=== PATIENT | male | born 1950 | race Caucasian/White ===

== ENCOUNTER 2024-01-26 13:11 | Outpatient (CLI) | payer MEDICARE, SELFPAY ==
--- NOTE | 2024-01-26 | ECG_ITS ---
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 Interpretive Statements NAME OF STUDY: TREADMILL STRESS ECHOCARDIOGRAM INDICATION: Chest Pain, pt did not hit target heart rate PROCEDURE: At the baseline, the patient's blood pressure was 150/103 with a heart rate of 62. The baseline electrocardiogram showed normal sinus rhythm with normal ST-Ts.. The patient exercised for 6 minutes and 34 on a standard [place] protocol. Patient attained a maximum heart rate of 130 beats per minute(76% of the maximum predicted heart rate) with a blood pressure at the peak exercise of 173/97 mm Hg. The EKG at the peak exercise revealed nonspecific ST-T changes patient did not have any chest pain or any significant cardiac arrhythmias with the exercise During the recovery phase, there were no new changes. Blood pressure at the end of the recovery phase was 186/80 mm Hg with a heart rate of 70 per minute. There were frequent PVCs on the monitor. The EKG showed 1-[address] depressions in leads II, III, aVF, V5 and V6 CONCLUSION: 1. Abnormal EKG response to treadmill exercise, suggesting inferolateral wall ischemia 2. There was exercise-induced ventricular arrhythmia 3. Fair exercise tolerance, attained a maximum of 10.2 METs Electronically Signed On 01-31-2024 0:01:33 CDT by Kandy Beltran M.D. [email or web address]
[2024-01-26 13:28] VITALS: BMI 29.7
--- NOTE | 2024-01-26 13:30 | USCV_ITS ---
Nii Hendrix Age: 73 Gender: M : 1950 Exam Date: 01/26/2024 13:28 Ordering Phys: Zahraa Culp MD Technologist: Exam Location: [facility] [place] Indication: chest pain Rhythm: Sinus Patient History: Cardiac Medications: Medications in past 24 hours: Contrast: Stress Results Protocol: [place] Total dose(mL): Exercise Duration (min:sec): METS: Resting HR: 64 Resting BP: 150 / 103 Peak HR: Peak BP: / Max Predicted HR: 148 % Max Predicted HR Target HR: 126 Double Product: Stress Summary: BP Response: Reason for Termination: Cardiac Symptoms: ECG Analysis Resting ECG: Stress ECG: Arrhythmia: MEASUREMENTS (Male/Female) Normal Values FINDINGS Baseline echocardiogram revealed normal LV size with possibly normal ejection fraction. Mild hypokinesia of the apical septum, mid and apical inferolateral wall segments. With the peak exercise, there was a good augmentation of all the segments except for the abovementioned segment which became more hypokinetic. Aortic root: Normal size. No pericardial effusion. CONCLUSIONS 1. Exercise-induced worsening of the baseline wall motion abnormalities, suggesting ischemia in the distribution of the left anterior descending artery and left circumflex artery No pericardial effusion No similar previous studies are available for comparison Dr Kandy Betlran MD [facility] (Electronically Signed) Final Date: 27 January 2024 00:17 S
[2024-01-26 13:58] VITALS: BP 186/80; PULSE 71
== END 2024-01-26 13:12 | disposition home or self-care (01) ==
LOC: CDL 13:11
PROVIDERS: Visit Provider Family Medicine
DX: R07.9 Chest pain, unspecified (principal); I20.89 Other forms of angina pectoris; R94.31 Abnormal electrocardiogram [ECG] [EKG]
CPT/HCPCS: 93350

== ENCOUNTER → 2024-01-31 12:55 | Outpatient (BNVA) | payer MEDICARE, SELFPAY | PROVIDERS: Referring Provider Family Medicine; Visit Provider Internal Medicine | DX: I20.89 Other forms of angina pectoris (principal); R94.39 Abnormal result of other cardiovascular function study; I10 Essential (primary) hypertension; Z87.891 Personal history of nicotine dependence | CPT/HCPCS: 99205 ==

== ENCOUNTER → 2024-02-02 08:35 | Outpatient (BNVA) | payer MEDICARE, SELFPAY | PROVIDERS: Visit Provider Internal Medicine | DX: R58 Hemorrhage, not elsewhere classified (principal); E78.5 Hyperlipidemia, unspecified; R94.39 Abnormal result of other cardiovascular function study; I20.89 Other forms of angina pectoris | CPT/HCPCS: 80048; 80061; 85025; 85610 ==

== ENCOUNTER 2024-02-10 06:11 | Outpatient (CLI) | payer MEDICARE, SELFPAY ==
[2024-02-10] VITALS (17 sets, daily range): BP systolic 114–160; BP diastolic 59–81; PULSE 53–65; RESP 11–20; TEMP 36.6–36.9; O2SAT 95–99
[2024-02-10] MEDS: aspirin 325 mg Tablet PO (06:30)
[2024-02-10] MEDS: diphenhydrAMINE 50 mg Capsule PO (06:30)
--- NOTE | 2024-02-10 07:00 | XACV_ITS ---
Ht: 170 cm Wt: 87 kg BSA: 2.05 m2 Gender: Male : 1950 Any Known Allergies: No known allergies Exam Priority: Routine Procedure(s): Procedure Description: Diagnostic procedure Procedure Description: Left Heart Catheterization Procedure Description: Left ventriculography Procedure Description: Coronary Angiography Diagnostic Cath Status: Elective Diagnostic Findings * INDICATION: Worsening angina/abnormal stress test. * Left Main has no significant disease. * Proximal Left Anterior Descending to Distal Left Anterior Descending: severe serial 80-90% stenosis, EMERITA: 3 flow. LAD gives rise to large sized second diagonal artery that has proximal 80% stenosis. * Mid Right Coronary Artery: critical 95% stenosis, EMERITA: 3 flow. PDA and PLV branches have left to right collaterals. * Proximal Circumflex: critical 95% stenosis, MEERITA: 3 flow. * Mid Circumflex: severe 90% stenosis, EMERITA: 2 flow. * Coronary angiography shows right dominance. Conclusions 1. Critical multivessel CAD. 2. Mild left ventricular systolic dysfunction. Ejection fraction of 45%. Recommendations * We will refer patient to tertiary care center for CABG evaluation. * We will continue aspirin, will start high intensity statin therapy, uptitrate anti-anginal therapy. * Outpatient cardiology follow up in 2 weeks. Interventional RX Recommendation: CABG Diagnostic RX Recommendation: CABG Anticoagulation: Heparin Ventriculography Ejection Fraction: 45.0 % Pressures Phase:Rest AO : 137 / 69 ( 94 ) @ 9:07:00 AM 165 / 71 ( 107 ) @ 9:15:00 AM 159 / 75 ( 108 ) @ 9:15:00 AM LV : 159 @ 9:14:00 AM 159 @ 9:15:00 AM 170 / - @ 9:15:00 AM Valves Phase:DefaultPhase AV : 0.0 @ 8:22:01 AM 0.0 @ 8:22:01 AM AV Mean Gradient: 0.0 @ 8:22:01 AM 0.0 @ 8:22:01 AM Clinical Evaluation EBL: 5mL-10mL Procedural Details Procedure Consent Obtained. Pre-Procedure Time Out. Identified patient by full name and date of as verbalized by the patient/guarantor. Does the consent match the physician's order: Yes. Accurate & Complete Informed Consent: Yes. Inpatient/Outpatient History & Physical on Chart: Yes. If H&P is completed, is and addenduem needed: No; If yes, is the addendum complete: N/A. Visualize and Verify Site with Patient/Guarantor: N/A. Relevant Radiology Images available: N/A. Pre-op teaching completed and patient verbalized understanding. The risks, benefits, and alternatives of sedation and/or procedure were discussed by physician. The patient agrees to continue. Procedure started. [facility] Clinical Fraility Score: 3: Managing Well. Hide Dropper Indications: Worsening Angina, abnormal stress test. Chest Pain Symptom Assessment: Typical Angina Symptoms. Cardiovascular Instability: No. Correct patient, site and procedure confirmed by cath team. PERRLA. 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 Lungs clear x 5 lobes. IV Site on Arrival: 20 gauge in the left anticubital. IV Fluids: 0.9% NaCl at KVO. 0 mL infused prior to logging rafter laborer. Pre Procedural Pulses: bilateral dorsalis pedis was 2+. Pre Procedural Pulses: bilateral posterior tibial was 2+. Pre Procedural Pulses: bilateral radial was 3+. Oxygen started at 2liters/min via nasal canula. right groin was prepped with chloroprep then draped in the usual sterile fashion. right radial was prepped with chloroprep then draped in the usual sterile fashion. Physician arrived. Baseline sample Acquired. HR: 64 BPM. Equipment: 6F - Radial. Cardiac Cath Pack. ACIST Manifold Kit Model BT 2000. Heparinized Saline (2 units/mL), 1000 mL bag. Physician scrubbed in. Immediate Pre-Procedure Time Out. Correct Patient: Yes; Correct Procedure: Yes; Correct Site: Yes; Correct Patient Position: Yes; Correct Supplies: Yes; Dried Flammable Prep: Yes; Blood Products Available: N/A;. Lidocaine 1% infiltrated to the right radial. Arterial access obtained. A 5 panamanian TIG catheter in over wire. Multiple views taken of left coronary artery. Catheter redirected to the RCA. Multiple views taken of right coronary artery. Catheter removed over the exchange wire. A 5 panamanian Angled Pig catheter in over wire. EDP Sample taken: LV 159/7,19; HR: 58 BPM; SpO2: 99%. LV gram performed in [place] @ 10 mL/second for a total of 30 mL. EDP Sample taken: LV 159/4,19; HR: 69 BPM; SpO2: 98%. Pullback taken: LV 170/-2,22; AO 165/71(107); Mean: 0mmHg, Peak to Peak: 0mmHg, SEP: 15sec/min; HR: 65 BPM; SpO2: 99%. Catheter removed over the exchange wire. Physician scrubbed out. A TR Band was successful obtaining hemostatsis at the Right Radial artery insertion site. TR band placed. Hemostasis obtained. Post Procedure: Pulses reassessed and unchanged. PERRLA. 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 No VTE prophylaxis required. Medication's Wasted: Lidocaine 1% = 17 mL. Medication's Wasted: Nitro = 49.8 mg. Medication's Wasted: Other = versed 1 mg. Medication's Wasted: Other = fentanyl 50 mcg. Total IV fluids: 32 mL. Post-op diagnosis: multi vessel CAD,. Complications: none. Estimated blood loss: 5mL-10mL. Contrast type used: Omnipaque 300 mgI/mL, 500 mL bottle. Responsiveness - Normal response to verbal stimuli; alert and oriented, PERRLA. Airway - Unaffected, no intervention required; spontaneous ventilation. Circulation: W/N/L, pulses unchanged. Nausea/Vomiting: No. Medication's Wasted: Heparin = 1000 units. Procedure completed. Patient transferred by wheelchair to 1st floor. Vital chart was stopped. Access Site Site: Right Radial artery Sheath Size: 6 Fr Hemostasis Method: TR Band Hemostasis Success: Successful Procedure Medications Start: 7:59 AM Stop: 7:59 AM Medication: Versed Amount: 1 mg Route: I.V. Start: 7:59 AM Stop: 7:59 AM Medication: Fentanyl Amount: 50 mcg Route: I.V. Start: 8:05 AM Stop: 8:05 AM Medication: Nitrogylcerin Amount: 200 mcg Route: I.A. Start: 8:07 AM Stop: 8:07 AM Medication: Heparin Amount: 5000 units Route: I.V. I, the attending physician, have reviewed and verified all procedure medications. Yes, all medications given per verbal order History/Risk Factors Hypertension: Yes Dyslipidemia: No Peripheral Arterial Disease (PAD): No Myocardial Infarction (WA): No Obesity: No Renal Disease: No Tobacco Use: Former Prior Interventions PCI: No CABG: No Valve Surgery: No Report Signatures Finalized by Alejandro Baldwin MD on 02/11/2024 10:36 PM
--- NOTE | 2024-02-10 07:59 | W.PM.OPSUD ---
Surgery/Procedure H&P Update DATE OF PROCEDURE: February 10, 2024 DATE H&P PERFORMED: 01/31/24 H&P UPDATE INFORMATION: I have reviewed H&P completed within last 30 days, I have examined patient prior to procedure and No changes to prior documentation PREOP DIAGNOSIS: Worsening angina/abnormal stress test PRIMARY INDICATION FOR PROCEDURE: Worsening angina/abnormal stress test PLANNED PROCEDURE: Operation Date: 02/10/24 07:00 Proposed Procedures p Cardiac Catheterization 18870, R94.39(Left) - Alejandro Baldwin M.D Possible percutaneous coronary intervention PATIENT REASSESSED PRIOR TO SEDATION, WITH NO CHANGE NOTED: Yes PHYSICAL EXAM: alert, oriented x 3, clear to auscultation bilaterally and regular rate & rhythm AIRWAY EVAL/ANESTHESIA PLAN: normal airway, ASA III, Local Anesthesia, Risks, benefits & alternatives of sedation and/or procedure discussed and Patient agrees to continue as planned ADDITIONAL INFORMATION: Moderate sedation
--- NOTE | 2024-02-10 08:44 | PC.NURSE ---
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 No s/s of bleeding or hematoma formation observed. Instructed patient on site care and restrictions. Patient verbalized complete understanding. Will continue to monitor.
--- NOTE | 2024-02-10 11:00 | PC.NURSE ---
Initiated air removal from TRBand at ~0930. Removed 2-3ml of air every 15-20min until all air removed at this time. TRBand removed. No s/s of bleeding or hematoma formation observed. Reinforced site care and restrictions. Patient verbalized complete understanding. Covered site with 2x2 and loose coban. Will continue to monitor.
--- NOTE | 2024-02-10 12:14 | PC.NURSE ---
Patient provided discharge information. Appointments made. Patient reports having his appointment for Dr Barrett for [place]. Medications with changes. Provided informtion regarding CABG, medications and post cath care. Patient verbalized complete understanding. IV removed. Right wrist remains free from bleeding and hematoma formation. Patient taken by wheelchair to private vehicle..
== END 2024-02-10 12:14 | disposition home or self-care (01) ==
LOC: CCL 06:19 → CSU 08:45
PROVIDERS: PCP Family Medicine; Visit Provider Internal Medicine
DX: I25.118 Atherosclerotic heart disease of native coronary artery with other forms of angina pectoris (principal); I10 Essential (primary) hypertension; Z87.891 Personal history of nicotine dependence
CPT/HCPCS: 36415; 93458; 96374; 96375; 99152; 99153; C1769; C1887; C1894; J1644; J2250; J3010; J3490; J7030; Q0163; Q9967

== ENCOUNTER → 2024-03-19 16:05 | Outpatient (BNVA) | payer MEDICARE, SELFPAY | PROVIDERS: PCP Family Medicine; Visit Provider Family Medicine | DX: M25.50 Pain in unspecified joint | CPT/HCPCS: 80053; 84550 ==

== ENCOUNTER → 2024-04-16 14:06 | Outpatient (BNVA) | payer MEDICARE, SELFPAY | PROVIDERS: PCP Family Medicine; Visit Provider Internal Medicine | DX: I10 Essential (primary) hypertension (principal); I25.10 Atherosclerotic heart disease of native coronary artery without angina pectoris; Z87.891 Personal history of nicotine dependence; Z95.1 Presence of aortocoronary bypass graft | CPT/HCPCS: 36415; 80053; 82550; 83880; 99214 ==

== ENCOUNTER → 2024-04-25 14:32 | Outpatient (BNVA) | payer MEDICARE, SELFPAY | PROVIDERS: Referring Provider Family Medicine; Visit Provider Surgery | DX: I25.10 Atherosclerotic heart disease of native coronary artery without angina pectoris (principal); K64.4 Residual hemorrhoidal skin tags; K64.8 Other hemorrhoids | CPT/HCPCS: 99203 ==

== ENCOUNTER → 2024-06-01 10:42 | Outpatient (BNVA) | payer MEDICARE, SELFPAY | PROVIDERS: Visit Provider Family Medicine | DX: R39.9 Unspecified symptoms and signs involving the genitourinary system; E78.5 Hyperlipidemia, unspecified; N40.0 Benign prostatic hyperplasia without lower urinary tract symptoms | CPT/HCPCS: 80053; 80061; 81000; 85025; 87086 ==

== ENCOUNTER → 2024-07-17 11:58 | Outpatient (BNVA) | payer OTHER, SELFPAY | PROVIDERS: PCP Family Medicine; Visit Provider Internal Medicine | DX: I10 Essential (primary) hypertension (principal); I25.10 Atherosclerotic heart disease of native coronary artery without angina pectoris | CPT/HCPCS: 99214 ==

== ENCOUNTER → 2025-01-15 10:41 | Outpatient (BNVA) | payer MEDICARE, SELFPAY | PROVIDERS: PCP Family Medicine; Visit Provider Nurse Practitioner Family | DX: I25.10 Atherosclerotic heart disease of native coronary artery without angina pectoris (principal); Z95.1 Presence of aortocoronary bypass graft; E78.5 Hyperlipidemia, unspecified; I10 Essential (primary) hypertension; M62.82 Rhabdomyolysis; Z87.891 Personal history of nicotine dependence | CPT/HCPCS: 99214 ==

== ENCOUNTER → 2025-02-21 12:09 | Outpatient (BNVA) | payer MEDICARE, SELFPAY | PROVIDERS: PCP Family Medicine; Visit Provider Registered Nurse Neonatal Intensive Care | DX: M17.11 Unilateral primary osteoarthritis, right knee (principal) | CPT/HCPCS: 73562 ==

== ENCOUNTER 2025-02-23 15:13 | Inpatient (IN) | payer MEDICARE, SELFPAY ==
[2025-02-23 15:13] VITALS: BP 135/59; PULSE 83; RESP 17; TEMP 37.4; O2SAT 94; BMI 32.1
--- NOTE | 2025-02-23 15:20 | XRR_ITS ---
PROCEDURE INFORMATION: Exam: XR Right Knee Exam date and time: 02/23/2025 3:22 PM Age: 74 years old Clinical indication: Pain; Knee; Right; Additional info: R knee pain TECHNIQUE: Imaging protocol: Radiologic exam of the right knee. Views: 3 views. COMPARISON: CR XR knee RT 3V* [id number] 02/21/2025 12:17 PM FINDINGS: Bones/joints: There is tricompartmental narrowing present consistent with severe osteoarthritis. Soft tissues: Unremarkable XR/XR knee RT 3V* [id number] IMPRESSION: No acute findings.
--- NOTE | 2025-02-23 15:22 | ED_ITS ---
HPI - Extremity Problem 2 General: Chief complaint: Extremity Problem,Nontraumatic Stated complaint: right knee pain Time Seen by Provider: 02/23/25 15:18 Source: patient Mode of arrival: ambulatory Limitations: no limitations History of Present Illness: 74-year-old male who states been having right knee pain since Tuesday. States it has been a sharp pain rates it an 8 out of 10 is much worse with movement and walking denies any injuries. No history of surgery on that knee Associated symptoms: Deny chest pain, fever(s) or rash Related Data Home Medications ?Medication ?Instructions ?Recorded ?Confirmed aspirin 81 mg tablet,delayed 81 mg PO DAILY 02/23/25 0 02/23/25 release clopidogrel 75 mg tablet 75 mg PO DAILY 02/23/2502/01 Previous Rx's ?Medication ?Instructions ?Recorded amlodipine 10 mg tablet 10 mg PO DAILY #90 tabs 12/25 tramadol 50 mg tablet 50 mg PO BID PRN pain #60 ta bs 01/03/25 tamsulosin 0.4 mg capsule 0.4 mg PO DAILY #90 caps 05/27 diclofenac sodium 1 % topical gel 4 g topical QID #100 grams 02/21/25 (Voltaren Arthritis Pain) Allergies Allergy/AdvReac Type Severity Reaction Status Date / Time bisoprolol Allergy Intermediate ADV-Weaknes Verified 02/21/25 11:51 s carvedilol Allergy Intermediate Urinary Verified 02/21/25 11:51 retention [id number]-PfT Reductase Allergy ADR-Abdominal Verified 02/21/25 11:51 Inhibitor Pain Review of Systems 2 Const: Denies: fever(s), chills, body aches or change in appetite ENMT: Denies: throat pain or dental pain Card: Denies: chest pain Resp: Denies: dyspnea GI: Denies: abdominal pain, nausea, vomiting or diarrhea Musc: Reports: extremity pain; Denies: neck pain or back pain Skin/Breast: Denies: rash Neuro: Denies: headache(s) PFSH ED 2 PFSH: Medical History Urinary frequency Chronic pain BPH (benign prostatic hyperplasia) Surgical History History of tonsillectomy History of laminectomy History of appendectomy History of heart bypass surgery Family History Grandfather CAD (coronary artery disease) Grandmother Stroke Father Abdominal abscess Mother Heart failure Social History Smoking and tobacco/nicotine status: never used tobacco/nicotine Alcohol intake: never Substance/Drug Use: never Physical Exam 2 Const: COMMON NORMALS: patient oriented x3 HENMT: COMMON NORMALS: normocephalic and atraumatic HEAD & SCALP: n ormocephalic and atraumatic Eye: COMMON NORMALS: conjunctivae normal CONJUNCTIVA: Yes conjunctivae normal Neck/C-Spine: COMMON NORMALS: full ROM and supple Chest: COMMONS NORMALS: normal inspection of the chest Resp: COMMON NORMALS: normal respiratory effort Cardio: COMMON NORMALS: regular rate RATE: regular rate Extremity: NARRATIVE EXTREMITY EXAM: Swelling noted to right knee along with tenderness to touch Neuro: COMMON NORMALS: patient oriented x3, moves all extremities and no focal motor deficits Psych: COMMON NORMALS: mental status grossly normal, Normal thought process present and cooperative THOUGHT PROCESS: Normal thought process present Skin: COMMON NORMALS: no rashes or lesions noted and no wounds GENERAL SKIN EXAM: no rashes or lesions noted Procedures Joint Aspiration/Injection Joint Asp./Inject. 1: Time Out Performed: Yes Side of body: right Joint Aspirated: knee Ultrasound Guidance: No Skin Prep: Povidone-Iodine1% Local Anesthetic: lidocaine 1% Amount of anesthesia used (mL): 8 Needle Size Used: 18G Fluid Obtained: purulent Total fluid obtained (mL): 40 Patient Tolerated Procedure: well Complications: none Course 2 Vital Signs: Vital signs: Vital Signs Temperature 99.3 F 02/23/25 15:13 Pulse Rate 94 02/23/25 16:50 Respiratory Rate 18 02/23/25 16:50 Blood Pressure 115/54 02/23/25 16:50 Pulse Oximetry 95 02/23/25 16:50 Oxygen Delivery Me thod Nasal Cannula 02/23/25 16:50 Oxygen Flow Rate 2 02/23/25 16:50 MDM - Extremity (Nontraumatic) Medical Decision Making Patient presents here with a right knee joint effusion did tap the joint has white cells but no organisms spoke to the hospitalist along with orthopedics will admit at this time on IV antibiotics. Medical Records I reviewed the patient's medical records. Lab Data I reviewed the patient's lab results. 02/23/25 16:06 02/23/25 16:06 Radiology Impressions Knee X-Ray 02/23/25 15:20 IMPRESSION: No acute findings. Laboratory Results WBC 12.94 10^3/uL (3.29-11.43) H 02/23/25 16:06 RBC 4.58 10^6/uL (3.85-5.65) 02/23/25 16:06 Hgb 12.20 g/dL (11.27-16.99) 02/23/25 16:06 Hct 39.0 % (37-53) 02/23/25 16:06 MCV 85.2 fl (82-101) 02/23/25 16:06 MCH 26.6 pg (27-33) L 02/23/25 16:06 MCHC 31.3 g/dL (30-55) 02/23/25 16:06 RDW 15.9 % (12.1-15.1) H 02/23/25 16:06 Plt Count 212 10^3/cmm (157-399) 02/23/25 16:06 MPV 9.0 fL (7.4-10.4) 02/23/25 16:06 Neut % (Auto) 86.2 % 02/23/25 16:06 Lymph % (Auto) 5.1 % 02/23/25 16:06 [place] % (Auto) 7.9 % 02/23/25 16:06 Eos % (Auto) 0.1 % 02/23/25 16:06 Baso % (Auto) 0.2 % 02/23/25 16:06 Neut # (Auto) 11.15 10^3/uL (1.8-7.7) H 02/23/25 16:06 Lymph # (Auto) 0.7 10^3/uL (0.8-4.8) L 02/23/25 16:06 [place] # (Auto) 1.0 10^3/uL (0.2-0.9) H 02/23/25 16:06 Eos # (Auto) 0.0 10^3/uL (0.0-0.8) 02/23/25 16:06 Baso # (Auto) 0.0 10^3/uL (0.0-0.1) 02/23/25 16:06 Nucleated RBC % (auto) 0 % 02/23/25 16:06 Nucleated RBCs # 0.0 /100WBC 02/23/25 16:06 ESR 67 mm/hr (0-10) H 02/23/25 16:06 Sodium 133 mmol/L (136-145) L 02/23/25 16:06 Potassium 4.2 mmol/L (3.5-5.1) 02/23/25 16:06 Chloride 98 mmol/L (98-107) 02/23/25 16:06 Carbon Dioxide 22 mmol/L (22-29) 02/23/25 16:06 Anion Gap 17.2 (5-19) 02/23/25 16:06 BUN 26 mg/dL (8-23) H 02/23/25 16:06 Creatinine 1.4 mg/dL (0.7-1.2) H 02/23/25 16:06 GFR Calculation Not Reportable 02/23/25 16:06 Glucose 104 mg/dL (65-115) 02/23/25 16:06 Calculated Osmolality 281 mOsm/kg (285-295) L 02/23/25 16:06 Calcium 8.9 mg/dL (8.5-10.5) 02/23/25 16:06 C-Reactive Protein 279.6 mg/L (0.0-4.9) H 02/23/25 16:06 Synovial Color Other (PALE YELLOW) 02/23/25 15:46 Synovial Appearance Turbid (CLEAR) 02/23/25 15:46 Synovial WBC 23180 /uL (0-150) H 02/23/25 15:46 Synovial RBC 41 10^3/uL (0-0) H 02/23/25 15:46 Synovial Mononuclear 4.878 10^3/uL 02/23/25 15:46 Synov Polynuclear WBCs 34.472 10^3/uL 02/23/25 15:46 Synovial Other Cells Not Reportable 02/23/25 15:46 Synovial Polynuclear % 87.600 % 02/23/25 15:46 Synovial Mononuclear % 12.400 % 02/23/25 15:46 Path Cons w/Slide Yes 02/23/25 15:46 All radiology interpretation(s) finalized by discharge Discharge Plan Discharge Patient Disposition: Admitted As Inpatient Clinical Impression: Effusion of knee joint right Condition: Stable Coding Level of Care Code ED [employer] 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
--- NOTE | 2025-02-23 15:32 | PC.NURSE ---
pt states [employer] pacemaker, interrogated and report given to Dr. Medeiros.
[2025-02-23] MEDS: lidocaine 1% 10 ML INJ SUBCUT (15:33)
[2025-02-23] MEDS: HYDROmorphone 0.5 MG/0.5 ML INJ 1 MG IVP (15:33)
[2025-02-23 16:06] LABS: Cyto Order Verification No Order; RBC Synovial Fluid 41 10^3/uL (0-0); Synovial Fluid Mononuclear # 4.878 10^3/uL; Synovial Fluid Polynuclear # 34.472 10^3/uL; WBC Synovial Fluid 39350 /uL (0-150)
[2025-02-23 16:08] LABS: Appearance Synovial Fluid TURBID (CLEAR); Color Synovial Fluid OTHER (PALE YELLOW)
[2025-02-23 16:09] LABS: PATH Referal YES
[2025-02-23 16:12] LABS: Basophils % 0.2 %; Eosinophils % 0.1 %; Lymphocytes # 0.7 10^3/uL (0.8-4.8); Lymphocytes % 5.1 %; Mean Corpuscular HGB Conc 31.3 g/dL (30-55); Mean Corpuscular Hemoglobin 26.6 pg (27-33); Mean Corpuscular Volume 85.2 fl (82-101); Monocytes % 7.9 %; Neutrophils # 11.15 10^3/uL (1.8-7.7); Neutrophils % 86.2 %; Nucleated Red Blood Cells % 0 %; Platelet Count 212 10^3/cmm (157-399); Red Blood Count 4.58 10^6/uL (3.85-5.65); Red Cell Distribution Width 15.9 % (12.1-15.1); White Blood Count 12.94 10^3/uL (3.29-11.43)
[2025-02-23 16:18] LABS: Erythrocyte Sedimentation Rate 67 mm/hr (0-10)
[2025-02-23 16:19] VITALS: BP 151/63; PULSE 81; RESP 17; O2SAT 98
[2025-02-23 16:28] LABS: Anion Gap 17.2 (5-19); Blood Urea Nitrogen 26 mg/dL (8-23); C Reactive Protein 279.6 mg/L (0.0-4.9); Calcium 8.9 mg/dL (8.5-10.5); Carbon Dioxide 22 mmol/L (22-29); Chloride 98 mmol/L (98-107); Creatinine Clr Calc Pharmacy 51.0838; Glucose 104 mg/dL (65-115); Osmolality Calculated 281 mOsm/kg (285-295); Potassium 4.2 mmol/L (3.5-5.1); Sodium 133 mmol/L (136-145)
[2025-02-23 16:50] VITALS: BP 115/54; PULSE 94; RESP 18; O2SAT 95
[2025-02-23] MEDS: ketorolac 30 mg/mL INJ 15 MG IVP (17:00)
[2025-02-23 17:11] LABS: Crystals, Fluid SENT TO PATHOLOGY
[2025-02-23 17:23] VITALS: RESP 25; O2SAT 99
[2025-02-23] MEDS: morphine 4 mg/mL SDV 1 mL IVP (17:23)
[2025-02-23] MEDS: acetaminophen 325 mg Tablet 650 MG PO (17:25)
[2025-02-23] MEDS: piperacillin-tazobactam 3.375 GM in sodium chloride 0.9% (plus) 50 ML IV (17:25)
[2025-02-23 17:30] VITALS: BP 144/93; PULSE 98; O2SAT 97
[2025-02-23] MEDS: VANCOMYCIN ADD-Vantage 1,000 MG in 0.9% NaCl ADD-Vantage 250 ML 250 MG IV (18:12)
--- NOTE | 2025-02-23 18:13 | P.HP_ITS ---
Providers/Chief Complaint 2 Admitting Physician: Levi Wilson MD Primary Care Provider: Chris Amin MD Chief Complaint: right knee pain History of Present Illness Nii Hendrix is a 74 year old male with a past medical history of CAD status post CABG, hypertension, BPH, who presents [facility] due to right knee swelling, fevers, confusion. 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, no known injuries to the right knee, or breaks in the skin, no known cuts or bruises, denies any other artificial hardware, no steroid injections into the knee, no history of surgeries to his knees or his joints, Review of Systems 2 Const: Reports: fever(s) and chills; Denies: fatigue or malaise Card: Denies: chest pain Resp: Denies: dyspnea GI: Denies: abdominal pain Medications/Allergies Home Medications ?Medication ?Instructions ?Recorded ?Confirmed ?Last Taken ?Type amlodipine 10 mg tablet 10 mg PO DAILY #90 tabs 12/2502/23/25 02/22/25 Rx tramadol 50 mg tablet 50 mg PO BID PRN pain #60 ta bs 01/03/25 02/23/25 Unknown Rx tamsulosin 0.4 mg capsule 0.4 mg PO DAILY #90 caps 05/2702/23/25 02/22/25 Rx diclofenac sodium 1 % topical gel 4 g topical QID #100 grams 02/21/25 02/23/25 02/22/25 Rx (Voltaren Arthritis Pain) aspirin 81 mg tablet,delayed 81 mg PO DAILY 02/23/25 0 02/23/25 02/22/25 History release clopidogrel 75 mg tablet 75 mg PO DAILY 02/23/2502/0102/22/25 History Allergies Allergy/AdvReac Type Severity Reaction Status Date / Time bisoprolol Allergy Intermediate ADV-Weaknes Verified 02/21/25 11:51 s carvedilol Allergy Intermediate Urinary Verified 02/21/25 11:51 retention Archgxm-MIY-NgD Reductase Allergy ADR-Abdominal Verified 02/21/25 11:51 Inhibitor Pain PFSH Acute 2 PFSH: Medical History Urinary frequency Chronic pain BPH (benign prostatic hyperplasia) Surgical History History of tonsillectomy History of laminectomy History of appendectomy History of heart bypass surgery Family History Grandfather CAD (coronary artery disease) Grandmother Stroke Father Abdominal abscess Mother Heart failure Social History Smoking and tobacco/nicotine status: never used tobacco/nicotine Alcohol intake: never Substance/Drug Use: never Vitals/I&O/Wt Last Vital Signs Temp 99.3 F 02/23/25 15:13 Pulse 98 02/23/25 17:30 Resp 25 H 02/23/25 17:23 BP 144/93 02/23/25 17:30 Pulse Ox 97 02/23/25 17:30 O2 Del Method Nasal Cannula 02/23/25 16:50 O2 Flow Rate 2 02/23/25 16:50 02/23/25 02/23/25 02/23/25 06:59 14:59 22:59 Intake Total 50 / 50 Balance 50 / 50 Weight last 48 hrs Weight 73.028 kg Weight 92.986 kg Physical Exam 2 Const: COMMON NORMALS: no acute distress and patient oriented x3 HENMT: COMMON NORMALS: normocephalic HEAD & SCALP: normocephalic Eye: COMMON NORMALS: Equal, round and reactive pupils present Neck/C-Spine: COMMON NORMALS: no JVD Resp: COMMON NORMALS: normal respiratory effort, No retractions, No use of accessory muscles and clear to auscultation bilaterally AUSCULTATION: clear to auscultation bilaterally Cardio: COMMON NORMALS: regular rate, regular rhythm, S1 normal heart sound present and S2 normal heart sound present RATE: regular rate RHYTHM: r egular rhythm HEART SOUNDS: S1 normal heart sound present and S2 normal heart sound present GI: COMMON NORMALS: Normal to inspection, nondistended, normoactive bowel sounds present, Soft to palpation and non-tender Extremity: COMMON NORMALS: no calf tenderness and no pedal edema OTHER: Right knee, erythematous, swollen, diffuse tenderness to palpation Neuro: COMMON NORMALS: patient oriented x3, CN's II-XII intact bilaterally and moves all extremities Psych: COMMON NORMALS: mental status grossly normal Skin: OTHER: Sepsis examination, DP PT pulses palpable, cap refill less than 2 seconds no mottling, patient is septic, concern for right knee source, Data 02/23/25 16:06 02/23/25 16:06 Micro: Microbiology 02/23/25 15:46 Gram Stain - Final Synovial Fluid A&P Assessment and plan (1) Hx of CABG: (2) HLD (hyperlipidemia): (3) BPH (benign prostatic hyperplasia): (4) Joint pain: (5) Effusion of knee joint right: Plan Right knee swelling - No history of gout - Uric acid pending - No history of red meat/shellfish/thiazide/diuretics/alcohol - Does report recently using ibuprofen for right knee swelling - No history of breaks in his skin - No other artificial hardware - He does have a history of CABG about a year ago - No chest pain, no shortness of breath - No recent history of dental infections -Concerns for fevers, episodes of confusion, right knee swelling -Currently alert oriented x 3, following all commands Plan - Cardiac echocardiogram - CT head - Blood cultures - Right knee status post arthrocentesis, follow-up studies, follow culture results, crystal analysis - Vancomycin - Zosyn - N.p.o. midnight, - Sepsis - Concern for septic arthritis, right knee Encephalopathy - Patient's family reports episodes of confusion - Currently alert oriented x 3, following commands -ct head History of CABG -About a year ago - On aspirin, Plavix for roughly a year, will hold for now, answered many plans and surgical invention Acute kidney injury, creatinine 1.4, IV fluids full code lovenox for dvt prophylaxis PDMP PDMP Reviewed: Not Reviewed Attestations 2 Medical Necessity Statement*: Patient requires hospitalization for right knee swelling, concern for septic knee joint infection, inpatient, greater than 2 midnights Diagnoses Hx of CABG Z95.1 HLD (hyperlipidemia) E78.5 BPH (benign prostatic hyperplasia) N40.0 Joint pain M25.50 Effusion of knee joint right M25.461
[2025-02-23 18:34] LABS: Procalcitonin 0.86 ng/mL (0-0.5); Thyroid Stimulating Hormone 3.15 uIU/mL (0.27-4.20)
[2025-02-23] MEDS: enoxaparin 40 mg/0.4 mL Syringe SUBCUT (18:36)
[2025-02-23] MEDS: sodium chloride 0.9% 1,000 ML 50 ML IV (18:36)
[2025-02-23] MEDS: pantoprazole 40 mg SDV IVP (18:36)
[2025-02-23 18:44] LABS: Uric Acid 4.8 mg/dL (3.4-7.0)
[2025-02-23 19:17] LABS: Bilirubin Urine Negative (Negative); Blood Urine 2+ (Negative); Glucose Urine UA Negative (Normal); Ketones Urine Negative (Negative); Leukocyte Esterase Urine 3+ (Negative); Nitrate Urine Positive (Negative); Protein Urine 3+ (Negative); Urine Appearance Turbid (CLEAR); Urine Color Yellow (Yellow)
[2025-02-23 19:22] LABS: Add Urine Microscopic? YES; Bacteria Urine 4+ /hpf; Hyaline Casts Urine 10.96 /lpf; RBC Urine 0-2 /hpf (0-2); Squamous Epithelial Cell Urine 0-5 /hpf (0-5); WBC Urine >100 /hpf (0-5)
[2025-02-23 19:27] LABS: Estmated Average Glucose 111; Hemoglobin A1C 5.5 % (4.0-6.0)
[2025-02-23 19:44] LABS: Add Urine Culture? Yes; Calcium Oxalate Crystals Urine 0-4 /hpf; Coarse Granular Casts Urine 0-4 /lpf; Fine Granular Casts Urine 0-4 /lpf; UA Slide Review UA Slide Review Perf
[2025-02-23 20:00] VITALS: BP 110/58; PULSE 69; RESP 17; TEMP 36.6; O2SAT 96
[2025-02-23 20:52] LABS: pH Synovial Fluid 6 (7.0-7.5)
[2025-02-24] VITALS (9 sets, daily range): BP systolic 117–150; BP diastolic 52–69; PULSE 85–89; RESP 18–22; TEMP 36.8–39.8; O2SAT 90–96
[2025-02-24] MEDS: piperacillin-tazobactam 3.375 GM in sodium chloride 0.9% (plus) 50 ML IV ×2 (01:06→09:50)
[2025-02-24] MEDS: morphine 4 mg/mL SDV 1 mL 2 MG IVP ×2 (03:57→12:10)
[2025-02-24 05:32] LABS: Basophils % 0.4 %; Eosinophils # 0.1 10^3/uL (0.0-0.8); Eosinophils % 0.5 %; Hematocrit 34.6 % (37-53); Lymphocytes # 0.5 10^3/uL (0.8-4.8); Lymphocytes % 4.4 %; Mean Corpuscular HGB Conc 32.1 g/dL (30-55); Mean Corpuscular Hemoglobin 26.9 pg (27-33); Mean Corpuscular Volume 83.8 fl (82-101); Mean Platelet Volume 9.1 fL (7.4-10.4); Monocytes % 8.5 %; Neutrophils # 9.59 10^3/uL (1.8-7.7); Neutrophils % 85.8 %; Nucleated Red Blood Cells % 0 %; Platelet Count 189 10^3/cmm (157-399); Red Blood Count 4.13 10^6/uL (3.85-5.65); Red Cell Distribution Width 15.9 % (12.1-15.1); White Blood Count 11.18 10^3/uL (3.29-11.43)
[2025-02-24 05:43] LABS: Phosphorus 2.5 mg/dL (2.5-4.5)
[2025-02-24 05:48] LABS: Alanine Aminotransferase 46 U/L (0-41); Albumin Level 2.9 g/dL (3.5-5.2); Alkaline Phosphatase 300 U/L (40-130); Anion Gap 16.1 (5-19); Aspartate Amino Transferase 41 U/L (0-40); Blood Urea Nitrogen 27 mg/dL (8-23); Calcium 8.3 mg/dL (8.5-10.5); Carbon Dioxide 23 mmol/L (22-29); Chloride 101 mmol/L (98-107); Creatinine Clr Calc Pharmacy 45.3194; Globulin 2.7 g/dL (1.3-4.6); Glucose 87 mg/dL (65-115); Osmolality Calculated 286 mOsm/kg (285-295); Potassium 4.1 mmol/L (3.5-5.1); Sodium 136 mmol/L (136-145); Total Bilirubin 1.2 mg/dL (0.15-1.2); Total Protein 5.6 g/dL (6.6-8.7)
--- NOTE | 2025-02-24 06:59 | PHA.VACGOAL ---
Vancomycin Goal - Goal Vancomycin Goal:: 15-20 mg/L (concern for septic arthritis of the right knee) Vancomycin Indication:: Osteo - Therapy Day of therpy:: Day []of [] . Actual body weight (kg): 157 lb 3.2 oz - Data Labs: WBC 11.18 10^3/uL (3.29-11.43) 02/24/25 05:17 RBC 4.13 10^6/uL (3.85-5.65) 02/24/25 05:17 Hgb 11.10 g/dL (11.27-16.99) L 02/24/25 05:17 Hct 34.6 % (37-53) L 02/24/25 05:17 MCV 83.8 fl (82-101) 02/24/25 05:17 MCH 26.9 pg (27-33) L 02/24/25 05:17 MCHC 32.1 g/dL (30-55) 02/24/25 05:17 RDW 15.9 % (12.1-15.1) H 02/24/25 05:17 Sodium 136 mmol/L (136-145) 02/24/25 05:17 Potassium 4.1 mmol/L (3.5-5.1) 02/24/25 05:17 Chloride 101 mmol/L (98-107) 02/24/25 05:17 Carbon Dioxide 23 mmol/L (22-29) 02/24/25 05:17 Anion Gap 16.1 (5-19) 02/24/25 05:17 BUN 27 mg/dL (8-23) H 02/24/25 05:17 Creatinine 1.4 mg/dL (0.7-1.2) H 02/24/25 05:17 GFR Calculation Not Reportable 02/24/25 05:17
--- NOTE | 2025-02-24 07:00 | XRR_ITS ---
PROCEDURE INFORMATION: Exam: XR Chest Exam date and time: 02/24/2025 7:49 AM Age: 74 years old Clinical indication: Shortness of breath; Additional info: SOB TECHNIQUE: Imaging protocol: Radiologic exam of the chest. Views: 1 view. COMPARISON: No relevant prior studies available. FINDINGS: Tubes, catheters and devices: The patient is status post median sternotomy with intact sternal cerclage wires. Lungs: The lungs are clear bilaterally. The pulmonary vasculature is normal. Pleural spaces: No pleural effusion. No pneumothorax. Heart/Mediastinum: The heart is normal in size and contour. Bones/joints: Right lateral vertebral body marginal osteophytes are noted at multiple thoracic spinal levels. XR/XR chest 1V portable [id number] IMPRESSION: No acute cardiopulmonary abnormality identified.
--- NOTE | 2025-02-24 07:14 | PC.NURSE ---
Fall: During report with another pt, shift coordinator [employer] notified this nurse that pt had sustained a fall and hit his head on the bedside table. This nurse checked for signs of injury and no noticeable injuries present. V/S wnl and Dr. Wilson notified. Per Dr. Wilson, STAT head CT w/o contrast ordered.
--- NOTE | 2025-02-24 07:39 | CTR_ITS ---
PROCEDURE INFORMATION: Exam: CT Head Without Contrast Exam date and time: 02/24/2025 7:52 AM Age: 74 years old Clinical indication: Injury or trauma; Fall; Blunt trauma (contusions or hematomas); Additional info: Fall and hit head TECHNIQUE: Imaging protocol: Computed tomography of the head without contrast. Radiation optimization: All CT scans at this facility use at least one of these dose optimization techniques: automated exposure control; mA and/or kV adjustment per patient size (includes targeted exams where dose is matched to clinical indication); or iterative reconstruction. COMPARISON: No relevant prior studies available. RADIATION DOSE METRICS: Total DLP (mGy-cm): 1179.28 FINDINGS: Brain: Partially calcified right costophrenic angle mass measuring approximately 2.4 x 2.0 x 1.8 cm (series 4, image 12; series 8, image 38). Mild hypoattenuating foci are noted in the anterior lateral ventricular periventricular white matter bilaterally. No intracranial hemorrhage. No acute cortical infarction identified. Ventricles: Prominence of the ventricular system and subarachnoid spaces is consistent with the patient's age of 74 years. Paranasal sinuses: A cyst/polyp is present in the superior left maxillary sinus. Hypoplastic bilateral frontal sinuses, normal variant. Mastoid air cells: Visualized mastoid air cells are well aerated. Bones: No destructive bony process identified. Soft tissues: Unremarkable. Vasculature: Atherosclerotic calcifications are present involving the carotid artery siphons bilaterally. CT/CT head wo con* [id number] IMPRESSION: 1. Right costophrenic angle mass, differential diagnosis includes acoustic schwannoma and meningioma. Comparison with prior studies recommended, if available. Otherwise MRI or followup recommended. 2. Age appropriate supratentorial and infratentorial atrophy. 3. Mild chronic white matter microvascular ischemic disease. 4. No acute intracranial injury identified. .
--- NOTE | 2025-02-24 09:14 | USR_ITS ---
PROCEDURE INFORMATION: Exam: US Abdomen Complete Exam date and time: 02/24/2025 10:20 AM Age: 74 years old Clinical indication: Screening exam; Other: Ruq galbladder, and kidney; Prior surgery; Surgery date: 6+ months; Surgery type: Appendectomy as a child TECHNIQUE: Imaging protocol: Real-time ultrasound of the abdomen with image documentation. Complete exam. COMPARISON: No relevant prior studies available. FINDINGS: Liver: The liver measures 15.5 cm in the midclavicular plane. No mass. Gallbladder: A few non-mobile gallstones are noted posteriorly near the neck of the nondistended gallbladder (largest 22 mm; sonographic Valero sign not commented upon in the technologist examination notes). Borderline gallbladder wall thickening. No pericholecystic fluid identified. The gallbladder wall measures 3 mm. Gallbladder length 9.8 cm. Biliary ducts: The common bile duct measures 6 mm. No ductal calculi as visualized. Pancreas: The pancreas head, neck and proximal body are echogenic without cyst or mass identified. The remainder of the gland is obscured by bowel gas. Right kidney: Right renal 3.9 cm benign cyst. Right renal AP pelvic dimension 1.1 cm. The right kidney measures 10.3 x 6.4 x 5.1 cm. The renal parenchyma measures 1.6 cm. A brief color Doppler examination of the right kidney was performed showing normal color shifts. Left kidney: Lateral left mid renal isoechoic 2.4 x 2.3 x 2.1 cm possible mass. The left kidney measures 11.4 x 5.7 x 4.1 cm. The renal cortex measures 1.6 cm. A brief color Doppler examination of the left kidney was performed showing normal color shifts. Spleen: The spleen measures 11.2 x 4.5 x 3.9 cm. Unremarkable. Aorta: The mid abdominal aorta measures 1.6 cm. The remainder of the abdominal aorta is obscured by bowel gas. Inferior vena cava: Unremarkable upper abdominal IVC. Portal venous: A brief color and pulsed Doppler examination of the portal vein was performed showing normal hepatopedal flow. 32.6 cm/sec. US/US abdomen complete* [id number] IMPRESSION: 1. Cholelithiasis. 2. Right renal benign cyst. No follow-up imaging is recommended. 3. Mild right renal pelviectasis. 4. Left renal possible mass. Computed tomography without and with IV contrast or MRI recommended for further evaluation.
[2025-02-24] MEDS: doxycycline 100 mg Tablet PO ×2 (09:49→18:01)
[2025-02-24] MEDS: tamsulosin 0.4 mg Capsule PO (09:49)
[2025-02-24 09:50] LABS: Gamma Glutamyl Transferase 149 U/L (8-61); Lipase 42 U/L (13-60)
--- NOTE | 2025-02-24 11:57 | CTR_ITS ---
PROCEDURE INFORMATION: Exam: CT Abdomen And Pelvis Without Contrast Exam date and time: 02/24/2025 1:05 PM Age: 74 years old Clinical indication: Abnormal findings; Abnormal radiologic finding of the abdomen; Radiologic exam and body structure: US abdomen; Additional info: Left renal mass TECHNIQUE: Imaging protocol: Computed tomography of the abdomen and pelvis without contrast. Radiation optimization: All CT scans at this facility use at least one of these dose optimization techniques: automated exposure control; mA and/or kV adjustment per patient size (includes targeted exams where dose is matched to clinical indication); or iterative reconstruction. COMPARISON: US abdomen complete* [id number] 02/24/2025 10:20 AM RADIATION DOSE METRICS: Total DLP (mGy-cm): 1019.53 FINDINGS: Lungs: Right lower lobe calcified pulmonary parenchymal granulomas. Heart: Mild aortic valvular calcification is present. Coronary arteries: Atherosclerotic calcifications are present involving the RCA coronary artery. Liver: Normal. No mass. Gallbladder and biliary ducts: A few gallstones are noted posteriorly in the nondistended gallbladder lumen, largest 1.9 cm. No gallbladder wall thickening or pericholecystic fluid identified. Pancreas: Normal. No ductal dilation. Spleen: The spleen demonstrates a few small granulomatous calcifications. No splenomegaly. Adrenal glands: Normal. No mass. Kidneys and ureters: The right pelvic ureter is moderately dilated to the level of a 5.5 x 2.6 mm calculus at the inter margin of the ureterovesical junction. The right kidney shows moderate pelviectasis and moderate abdominal ureterectasis with mild perinephric stranding. Right renal calculi (2), the largest in the anterior lower pole measuring 4.6 mm. Left renal calculi (2), the largest in the anterior mid-lower kidney measuring 5.9 mm. Right renal medial upper pole 4.2 cm benign cyst. Stomach and bowel: Unremarkable. No obstruction. No mucosal thickening. Appendix: No evidence of appendicitis. Intraperitoneal space: No free air. No significant fluid collection. Vasculature: Moderate aortic atherosclerotic calcification without aneurysm. The iliac arteries show moderate bilateral atherosclerotic calcifications without evidence of aneurysm. Left pelvic calcified phleboliths. Lymph nodes: Bilateral hilar and subcarinal granulomatous villa calcifications are present. Urinary bladder: Unremarkable as visualized. Reproductive: The prostate gland demonstrates nonspecific parenchymal calcifications. Bones/joints: Bilateral lower lumbar facet primary osteoarthritis. Lumbar spine vertebral body marginal osteophytes are noted at multiple levels. Healed posterior right lower rib fractures. Mild L3-L4 anterolisthesis. Bilateral hips superior labral calcification. Bilateral superior acetabular subchondral cysts. Soft tissues: Anterior left abdominal wall subcutaneous adipose emphysema consistent with prior injections. A small paraumbilical hernia containing only abdominal fat is noted. CT/CT abdomen pelvis wo con [id number] IMPRESSION: 1. Right obstructive uropathy secondary to a right ureterovesical junction calculus. 2. Bilateral renal calyceal lithiasis. 3. Cholelithiasis. 4. Right renal benign cyst. No follow-up imaging is recommended. 5. Chronic calcific prostatitis. 6. Coronary atherosclerosis. COMMENTS: Consistent with the [employer]'s Incidental Findings Committee white paper (J Am Chana Radiol 2018): Any incidental renal lesion less than 1 cm or classified as too small to characterize, or any incidental cystic renal lesion characterized as simple-appearing, is likely benign. No follow-up imaging is recommended for these lesions per consensus recommendations based on imaging criteria.
--- NOTE | 2025-02-24 14:07 | CTR_ITS ---
PROCEDURE INFORMATION: Exam: CT Right Lower Extremity Without Contrast, Knee Exam date and time: 02/24/2025 3:38 PM Age: 74 years old Clinical indication: Pain; Knee; Right; Additional info: Knee pain, R/O fracture TECHNIQUE: Imaging protocol: CT of the right lower extremity without contrast was performed. Exam focused on the knee. Radiation optimization: All CT scans at this facility use at least one of these dose optimization techniques: automated exposure control; mA and/or kV adjustment per patient size (includes targeted exams where dose is matched to clinical indication); or iterative reconstruction. COMPARISON: CR (LOW EXM, ) 02/23/2025 3:22 PM RADIATION DOSE METRICS: Total DLP (mGy-cm): 379.09 FINDINGS: Bones/joints: Severe medial compartment predominate narrowing with moderate articular sclerosis. Moderate medial, mild lateral compartment articular marginal lipping. No significant lateral subluxation of the tibia as imaged. Mild varus alignment. 2.0 cm subchondral cyst of the weight-bearing medial femoral condyle. Medial and lateral femoral condylar marginal osteophytosis at the intercondylar notch. Prominent cancellous bone benign cysts at the PCL insertion, largest 2.5 cm, likely benign degenerative. Moderate knee joint effusion with intra-articular gas. Heterotopic ossifications posterior knee joint. Superior and inferior patellar articular marginal osteophytes are present. Soft tissues: A quadriceps tendon enthesis of the superior pole of the patella is present. Anterior and lateral predominant soft tissue edema. No soft tissue additional fluid collection identified. CT/CT knee RT wo con* [id number] IMPRESSION: 1. No acute bony injury identified. 2. Medial and patellofemoral compartment predominant primary osteoarthritis. 3. Moderate knee joint effusion with interval intra-articular gas. Clinical correlation (previous procedure? evidence of infection?) is recommended.
--- NOTE | 2025-02-24 14:49 | P.CONIM_ITS ---
Providers/Reason For Consult 2 Consulting Physician/Specialty*: Batool Lazaro MD Reason for Consult*: Swollen right knee Requesting Physician: Dr. Alexandre Medeiros Attending Physician: Levi Wilson MD Primary Care Provider: Chris Amin MD History of Present Illness History of Present Illness Nii Hendrix is a 74 year old male who presented to the emergency department complaining of right knee pain. Patient has complicated past medical history with coronary artery disease including CABG, hypertension, and benign prostatic hypertrophy. The patient had had increasing right knee pain and fever since the developing the right knee pain. He denied any injuries including cat or dog bites. 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 He is known to have severe arthritis in this knee. He has no history of surgery to his knee. The knee was aspirated in the emergency department, and purulent fluid was obtained, but Gram stain demonstrated no organisms. There was an event similar to this approximately a year ago that involved his foot, and per his daughter, he was tested for gout by blood work, and was advised that findings were negative for gout. Complicating further, he is on Plavix which has been stopped prior to any potential surgical intervention. Review of Systems 2 Const: Reports: fever(s) and chills; Denies: body aches, change in appetite, fatigue or malaise ENMT: Denies: throat pain or dental pain Card: Denies: chest pain Resp: Denies: dyspnea GI: Denies: abdominal pain, nausea, vomiting or diarrhea Musc: Reports: extremity pain; Denies: neck pain or back pain Skin/Breast: Denies: rash Neuro: Denies: headache(s) Medications/Allergies Home Medications ?Medication ?Instructions ?Recorded ?Confirmed ?Last Taken ?Type amlodipine 10 mg tablet 10 mg PO DAILY #90 tabs 12/2502/23/25 02/22/25 Rx tramadol 50 mg tablet 50 mg PO BID PRN pain #60 ta bs 01/03/25 02/23/25 Unknown Rx tamsulosin 0.4 mg capsule 0.4 mg PO DAILY #90 caps 05/2702/23/25 02/22/25 Rx diclofenac sodium 1 % topical gel 4 g topical QID #100 grams 02/21/25 02/23/25 02/22/25 Rx (Voltaren Arthritis Pain) aspirin 81 mg tablet,delayed 81 mg PO DAILY 02/23/25 0 02/23/25 02/22/25 History release clopidogrel 75 mg tablet 75 mg PO DAILY 02/23/2502/0102/22/25 History Allergies Allergy/AdvReac Type Severity Reaction Status Date / Time bisoprolol Allergy Intermediate ADV-Weaknes Verified 02/21/25 11:51 s carvedilol Allergy Intermediate Urinary Verified 02/21/25 11:51 retention Knrevon-VDW-WnH Reductase Allergy ADR-Abdominal Verified 02/21/25 11:51 Inhibitor Pain Current Medications Generic Name Dose Route Start Last Admin Trade Name Freq PRN Reason Stop Dose Admin Doxycycline Monohydrate 100 mg 02/24/25 09:00 02/24/25 09:49 Doxycycline 100 Mg Tablet PO 100 mg BID HENRIETTA Administration Protocol Enoxaparin Sodium 40 mg 02/23/25 18:15 02/23/25 18:36 Enoxaparin 40 Mg/0.4 Ml Syringe SUBCUT 40 mg Q24H HENRIETTA Administration Piperacillin Sod/Tazobactam 50 mls @ 12.5 mls/hr 02/24/25 01:00 02/24/25 14:34 Sod 3.375 gm/ Sodium Chloride IV Infused Q8H HENRIETTA Infusion Lactulose 20 gm 02/24/25 12:00 02/24/25 14:33 Lactulose Oral Liq 20 Gm/30 Ml Udc PO Not Given Q12H HENRIETTA Morphine Sulfate 2 mg 02/23/25 18:03 02/24/25 12:10 Morphine 4 Mg/Ml Sdv 1 Ml IVP 2 mg Q4H PRN Administration SEVERE PAIN Pantoprazole Sodium 40 mg 02/23/25 18:15 02/23/25 18:36 Pantoprazole 40 Mg Sdv IVP 40 mg Q24H HENRIETTA Administration Senna/Docusate Sodium 1 tab 02/24/25 12:00 02/24/25 14:33 Sennosides-Docusate Tablet PO Not Given BID HENRIETTA Tamsulosin HCl 0.4 mg 02/24/25 09:00 02/24/25 09:49 Tamsulosin 0.4 Mg Capsule PO 0.4 mg DAILY HENRIETTA Administration PFSH Acute 2 PFSH: Medical History Urinary frequency Chronic pain BPH (benign prostatic hyperplasia) Surgical History History of tonsillectomy History of laminectomy History of appendectomy History of heart bypass surgery Family History Grandfather CAD (coronary artery disease) Grandmother Stroke Father Abdominal abscess Mother Heart failure Social History Smoking and tobacco/nicotine status: never used tobacco/nicotine Alcohol intake: never Substance/Drug Use: never Dietary Habits: Current diet type/program: regular and diabetic Caffeine: Y es Exercise: What type of physical activity do you participate in?: none P hysical activity functional status: independent ambulation Safety: Seatbelt use: sometimes Drive intoxicated or 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 with 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 Home Safety: Water heater temperature set < 120 degrees: Yes Working smoke detector in home: Yes Fire extinguisher in home: Yes Carbon monoxide detector in home: No Personal Safety: Do you feel safe at home: Yes Victim of physical abuse: No Victim of emotional abuse: No Victim of sexual abuse: No NHANES Social Connection/Isolation: In a typical week, how many times do you talk on the telephone with family, friends, or neighbors?: Three or More Times per Week How often do you get together with friends or relatives?: Twice per Week Social isolation score (0-1 are the most socially isolated patients): 1 Vitals/I&O/Wt Last Vital Signs Temp 98.2 F 02/24/25 11:37 Pulse 88 02/24/25 11:37 Resp 18 02/24/25 11:37 BP 132/65 02/24/25 11:37 Pulse Ox 90 02/24/25 11:37 O2 Del Method Room Air 02/24/25 11:37 O2 Flow Rate 2 02/23/25 16:50 02/23/25 02/24/25 02/24/25 22:59 06:59 14:59 Intake Total 500 / 500 50 / 550 1050 / 1050 Output Total 750 / 750 Balance 500 / 500 -700 / -200 1050 / 1050 Weight last 48 hrs Weight 157 lb 3.2 oz Weight 161 lb Weight 205 lb Physical Exam 2 Const: COMMON NORMALS: no acute distress, average body habitus, patient oriented x3 and alert GENERAL APPEARANCE: cooperative and comfortable O RIENTATION/CONSCIOUSNESS: Yes awake HENMT: COMMON NORMALS: normocephalic and atraumatic HEAD & SCALP: n ormocephalic and atraumatic Eye: GENERAL EYE: appearance normal, both eyes and all related structures Chest: COMMONS NORMALS: normal inspection of the chest Resp: COMMON NORMALS: normal respiratory effort EFFORT & INSPECTION: Yes able to speak in complete sentences and Yes symmetric chest movement Extremity: RIGHT LOWER EXTREMITY: Yes knee joint (Knee effusion without significant skin erythema) Right knee: Yes inspection (Skin is warm to touch), Yes ROM (Patient is able to move his leg, reluctant to move knee) and Yes neurovascular exam (Intact distally) Neuro: COMMON NORMALS: patient oriented x3 SENSORIUM/ORIENTATION: Yes alert Psych: COMMON NORMALS: mental status grossly normal APPEARANCE: Yes grossly normal ATTITUDE: Yes calm and Yes engaged ATTENTION/CONCENTRATION: Yes attention grossly intact Skin: COMMON NORMALS: no rashes or lesions noted GENERAL SKIN EXAM: no rashes or lesions noted Data 02/24/25 05:17 02/24/25 05:17 Micro: Microbiology 02/23/25 15:46 Gram Stain - Final Synovial Fluid Body Fluid Culture - Preliminary 02/23/25 19:04 Blood Culture - Preliminary Blood SPECIMEN COLLECTED 02/23/25 19:02 Blood Culture - Preliminary Blood SPECIMEN COLLECTED Other Imaging: My impression: I reviewed the patient's plain x-rays as well as CT scan. There is no evidence of acute fracture. There is severe degenerative osteoarthritis and a large joint effusion. CT scan demonstrates air consistent with the patient's previous aspiration. There are also large cystic changes within the femoral condyles in particular consistent with severe arthritic change. A&P Assessment and plan (1) Effusion of knee joint right: This 74-year-old gentleman was admitted with complaints of fevers and severe right knee pain. By history, he has had a CABG and has multiple other medical problems. He denied any injury to the knee, and he denied any sort of bite or penetration of skin. 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 There is no evidence of skin breakdown. The patient presented and the knee was aspirated. There were 39,000 white cells in the fluid, but Gram stain demonstrated no organisms seen. The fluid was primarily polynuclear at 87%. Pathology has not been completed with regards to crystals. On the first day, there is no growth. Patient has previously been evaluated by blood work for gout, but not for joint fluid. His ESR is 67, but his white count upon initial presentation was 12.94 and today is 11.18. Urine demonstrates greater than 100 white cells per high-powered field with 3+ leukocyte Estrace. CT was obtained today, and there is no evidence of fracture or other significant injury. There is severe degenerative osteoarthritis. There is evidence of air in the joint, but this would be consistent with the patient's knee aspiration. As cultures are negative, we will delay any sort of surgical intervention unless symptoms worsen or fluid aspiration demonstrates growth. This is discussed with the patient and his daughter. They are in agreement with the plan. PDMP PDMP Reviewed: Not Reviewed Coding Level of Care Code Acute Code for Chg Fwd Diagnoses Effusion of knee joint right M25.461
[2025-02-24] MEDS: acetaminophen 325 mg Tablet 650 MG PO (17:43)
[2025-02-24] MEDS: sennosides-docusate Tablet 1 TAB PO (17:43)
[2025-02-24] MEDS: HYDROmorphone 0.5 MG/0.5 ML INJ 0.25 MG IVP (17:43)
[2025-02-24] MEDS: vancomycin 1,250 MG/250 ML PIGGYBACK 250 MG IV (17:44)
[2025-02-24] MEDS: sodium chloride 0.9% 1,000 ML 50 ML IV (17:44)
--- NOTE | 2025-02-24 17:59 | P.PN_ITS ---
Subjective 2 Subjective: - Patient was examined this morning he i s alert to person, to place, not to time, he follows commands he had a fall this morning and according to nursing staff hit his head, his head CT does not show any acute evidence of bleed - He was examined this morning no focal neurologic deficits, no facial droop, no slurring words he denies any headaches, no blurry vision - Discussed with daughter at bedside, jalil tony arthrocentesis Gram stain shows WBCs no organisms, cultures so far pending, remains afebrile overnight, right knee swelling is stable compared to yesterday - Discussed septic arthritis as a possib ility however he does not have any artificial hardware, no history of breaks in his skin, no knee injection, - He does have a UTI, he has been on bro ad-spectrum antibiotic therapy since admission, so that should cover for urinary tract infection - He denies any flank pain, -Venous ultrasound negative for DVT - Discussed further workup to rule out s eeding of infection such as endocarditis cardiac echocardiogram ordered, - We did discuss his head CT showing qi dence of possible meningioma schwannoma will need to follow-up with neurology or ENT as outpatient for MRI - Discussed plans of further workup - Will do renal ultrasound, continue IV antibiotics, - Cardiac echocardiogram, no significant valvular abnormalities - Renal ultrasound showed mild renal pel александр stasis, left renal possible mass - CT scan abdomen pelvis ordered which s hows right obstructive uropathy secondary to right ureterovesicular junction colliculi, measuring 5.5 x 2.6 mm, also has 2 left renal colliculi, with concerns for right pyelonephritis - With creatinine of 1.4, patient was ex amined continued to have episodes of confusion this afternoon, alert to person, to place, not to time, he is more confused this afternoon, more weak according to daughter at bedside - Concern for septic encephalopathy asso ciate with right obstructive uropathy right ureterovesicular junction stone, so far hemodynamics are stable, will continue to monitor him very closely - Discussed risk and benefits of transfe r, patient daughter voiced understanding, all questions agreed to proceed - Currently patient is alert to person, to place, not to time, is difficult for me to gauge if he understands the complexity of the situation and his underlying medical problems, given his septic encephalopathy, but daughter has consented to transfer to tertiary level center, -Did discuss with the daughter that cert ainly is a possibility that if he is bacteremic from right obstructive uropathy, although blood cultures so far negative, the infection could have seeded the right knee, although I feel this is fairly unlikely but certainly possible, nonetheless we will follow his right knee cultures they so far have had no growth, blood cultures no growth - [facility] has been accepted for transfer at [facility] for urgent need for urology intervention - Will keep patient p.o., gentle IV hydr ation, await transfer to [facility] Vitals/I&O/Wt Last Vital Signs Temp 103.6 F H 02/24/25 17:43 Pulse 89 02/24/25 16:00 Resp 19 H 02/24/25 16:00 BP 117/52 02/24/25 16:00 Pulse Ox 95 02/24/25 16:00 O2 Del Method Room Air 02/24/25 16:00 O2 Flow Rate 2 02/23/25 16:50 02/24/25 02/24/25 02/24/25 06:59 14:59 22:59 Intake Total 50 / 550 1050 / 1050 Output Total 750 / 750 Balance -700 / -200 1050 / 1050 Weight last 48 hrs Weight 71.305 kg Weight 73.028 kg Weight 92.986 kg Physical Exam 2 Urinary Catheter Management: Russ: Cath Placed During This Visit: yes Reason for Continuing Indwelling Catheter: Acute Urinary Retention or Obstruction Urinary Catheter Date of Insertion: 02/24/25 Urinary Catheter Time of Insertion: 17:42 Data 02/24/25 05:17 02/24/25 05:17 Micro: Microbiology 02/23/25 15:46 Gram Stain - Final Synovial Fluid Body Fluid Culture - Preliminary 02/23/25 19:04 Blood Culture - Preliminary Blood SPECIMEN COLLECTED 02/23/25 19:02 Blood Culture - Preliminary Blood SPECIMEN COLLECTED A&P Assessment and plan (1) Hx of CABG: (2) HLD (hyperlipidemia): (3) BPH (benign prostatic hyperplasia): (4) Joint pain: (5) Effusion of knee joint right: (6) Septic encephalopathy: (7) Obstructive uropathy: (8) UTI (urinary tract infection): (9) Right kidney stone: (10) Transaminitis: Plan Right obstructive uropathy, with right pyelonephritis, urinary tract infection CT scan abdomen pelvis Kidneys and ureters: The right pelvic ureter is moderately dilated to the level of a 5.5 x 2.6 mm calculus at the inter margin of the ureterovesical junction. The right kidney shows moderate pelviectasis and moderate abdominal ureterectasis with mild perinephric stranding. Right renal calculi (2), the largest in the anterior lower pole measuring 4.6 mm. Left renal calculi (2), the largest in the anterior mid-lower kidney measuring 5.9 mm. Right renal medial upper pole 4.2 cm benign cyst. Plan -Follow urine cultures - Follow blood cultures - Keep n.p.o. - Continue to hold aspirin, Plavix, these have been held since February 22, 2025 - IV fluids - Continue vancomycin - Continue Zosyn - Patient has been accepted at [facility], awaiting transfer for urology evaluation and potential stenting right ureter - Continue Flomax Septic encephalopathy -More confused this afternoon, monitor mentation closely - Concerns for obstructive uropathy, right pyelonephritis, UTI as etiology - CT head CT/CT head wo con* [id number] IMPRESSION: 1. Right costophrenic angle mass, differential diagnosis includes acoustic schwannoma and meningioma. Comparison with prior studies recommended, if available. Otherwise MRI or followup recommended. 2. Age appropriate supratentorial and infratentorial atrophy. 3. Mild chronic white matter microvascular ischemic disease. 4. No acute intracranial injury identified. . - Neurochecks - Aspiration precautions - Monitor mentation closely Right knee swelling - No history of gout - Uric acid pending - No history of red meat/shellfish/thiazide/diuretics/alcohol - Does report recently using ibuprofen for right knee swelling - No history of breaks in his skin - No other artificial hardware - He does have a history of CABG about a year ago - No chest pain, no shortness of breath - No recent history of dental infections -Concerns for fevers, episodes of confusion, right knee swelling - Potentially right obstructive uropathy resulting in seeding of infection of the right knee, is a possibility -So far blood cultures no growth -So far right knee arthrocentesis cultures no growth -ESR 67, CRP 279.6, Pro-Antoni 0.6 -Cardiac echocardiogram no significant valvular vegetations seen CT/CT knee RT wo con* [id number] IMPRESSION: 1. No acute bony injury identified. 2. Medial and patellofemoral compartment predominant primary osteoarthritis. 3. Moderate knee joint effusion with interval intra-articular gas. Clinical correlation (previous procedure? evidence of infection?) is recommended. - Prior tracheal gas, likely from recent arthrocentesis Plan -Follow right knee cultures - Blood cultures - Right knee status post arthrocentesis, follow-up studies, synovial pH 6, 76258 WBCs, turbid in appearance, Gram stain many white blood cells no organisms, no growth at 18 to 24 hours - Vancomycin - Zosyn - N.p.o. -Crystal analysis is pending, certainly gout is still a possibility - Dr. Lazaro and consult Brain mass Partially calcified right costophrenic angle mass measuring approximately 2.4 x 2.0 x 1.8 cm (series 4, image 12; series 8, image 38). Mild hypoattenuating foci are noted in the anterior lateral ventricular periventricular white matter bilaterally. No intracranial hemorrhage. No acute cortical infarction identified. - Will need an outpatient follow-up with neurology/ENT, MRI of the brain Sepsis - Right obstructive uropathy, History of CABG -About a year ago - On aspirin, Plavix for roughly a year, will hold for now, answered many plans and surgical invention Acute kidney injury, creatinine 1.4, IV fluids Recent tick bite, doxycycline full code lovenox for dvt prophylaxis PDMP PDMP Reviewed: Not Reviewed Attestations 2 Medical Necessity Statement*: Patient requires hospitalization for right obstructive uropathy, right pyelonephritis, UTI, requiring transfer to tertiary level center for urology evaluation, broad-spectrum antibiotic therapy right knee swelling, septic encephalopathy Diagnoses Hx of CABG Z95.1 HLD (hyperlipidemia) E78.5 BPH (benign prostatic hyperplasia) N40.0 Joint pain M25.50 Effusion of knee joint right M25.461 Septic encephalopathy G93.41 Obstructive uropathy N13.9 UTI (urinary tract infection) N39.0 Right kidney stone N20.0 Transaminitis R74.01
[2025-02-24] MEDS: pantoprazole 40 mg SDV IVP (18:01)
[2025-02-24] MEDS: enoxaparin 40 mg/0.4 mL Syringe SUBCUT (18:01)
--- NOTE | 2025-02-24 18:03 | USR_ITS ---
PROCEDURE INFORMATION: Exam: US Duplex Lower Extremity Veins, Bilateral Exam date and time: 02/24/2025 8:32 AM Age: 74 years old Clinical indication: Edema, localized; Lower extremity, bilateral; Additional info: Swelling, pain TECHNIQUE: Imaging protocol: Real-time duplex ultrasound of the bilateral extremities with 2-D esposito scale, color Doppler flow and spectral waveform analysis including responses to compression and other maneuvers (when performed) with image documentation. Complete exam focused on the lower extremity veins. COMPARISON: CR (LOW EXM, ) 02/23/2025 3:22 PM FINDINGS: Right deep veins: Unremarkable. The common femoral, femoral, proximal profunda femoral and popliteal veins are patent without thrombus. Normal Doppler waveforms. Normal compressibility and augmentation response. Left deep veins: Unremarkable. The common femoral, femoral, proximal profunda femoral and popliteal veins are patent without thrombus. Normal Doppler waveforms. Normal compressibility and augmentation response. Superficial veins: Greater saphenous veins at the saphenofemoral junctions are patent bilaterally without thrombus. Soft tissues: Unremarkable. US/CV venous duplex [facility] [id number] IMPRESSION: No evidence of deep vein thrombosis.
--- NOTE | 2025-02-24 18:10 | USCV_ITS ---
Nii Hendrix Age: 74 Gender: M : 1950 Exam Date: 02/24/2025 08:06 Ordering Phys: Levi Wilson MD Technologist: Caleb oCrtes [place] [facility] [place] sob BP: 136 / 69 HR: 73 Rhythm: Sinus Technical Quality: Adequate MEASUREMENTS (Male / Female) Normal Values 2D ECHO LV Diastolic Diameter PLAX 5.2 cm 4.2 - 5.9 / 3.9 - 5.3 cm IVS Diastolic Thickness 1.1 cm 0.6 - 1.0 / 0.6 - 0.9 cm IVS Systolic Thickness 2.0 cm LVPW Diastolic Thickness 1.5 cm 0.6 - 1.0 / 0.6 - 0.9 cm LVPW Systolic Thickness 2.0 cm LVOT Diameter 2.1 cm LV Ejection Fraction 2D Teich 74.6 % LV Ejection Fraction MOD 4C 66.2 % LA Diameter 4.0 cm RA Systolic Volume 4C AL 66.5 ml RA Systolic Volume 4C MOD 66.3 ml LA Sys Volume AL 72.9 cm cubed LA Sys Volume Index AL 39.6 cm cubed/m squared Aorta at Sinotubular Diameter 2.5 cm IVC Diameter 1.9 cm M-MODE LA Ao Ratio MM 1.4 AV Cusp Separation MM 1.7 cm DOPPLER AV Peak Velocity 227.7 cm/s LVOT Peak Velocity 132.0 cm/s AV Area Cont Eq vti 1.7 cm squared AV Area Cont Eq pk 2.0 cm squared MV Peak Velocity 119.0 cm/s MV Area PHT 6.8 cm squared Mitral E to A Ratio 1.0 TR Peak Velocity 219.0 cm/s TR Peak Gradient 19.2 mmHg TR Mean Velocity 156.0 cm/s TR Mean Gradient 10.9 mmHg TR Velocity Time Integral 50.5 cm PV Peak Velocity 158.0 cm/s RV Ejection Time 0.3 s FINDINGS Left Ventricle Normal left ventricular size, systolic function and wall thickness, with no regional wall motion abnormalities. Left ventricular ejection fraction is estimated at 60 %. Grade II/IV diastolic dysfunction, moderately elevated filling pressures. Right Ventricle The right ventricle is normal in size and function. Right Atrium The right atrium is normal in size. Left Atrium The left atrium is normal in size. Mitral Valve Mildly thickened mitral valve. No mitral valve stenosis. Mild mitral valve regurgitation. Aortic Valve Structurally normal aortic valve without significant sclerosis or stenosis. There is no aortic regurgitation. Tricuspid Valve [id number] tricuspid valve regurgitation. Pulmonic Valve Structurally normal pulmonic valve without significant stenosis. There is no pulmonic regurgitation. Pericardium Normal pericardium without effusion. Aorta Normal ascending aorta dimension. IVC The inferior vena cava appears normal. CONCLUSIONS Normal left ventricular size, systolic function and wall thickness, with no regional wall motion abnormalities. Left ventricular ejection fraction is estimated at 60 %. Grade II/IV diastolic dysfunction, moderately elevated filling pressures. There is no pericardial effusion. No significant valve abnormalities. Right atrial pressure is around 5 mm of mercury. Neelam Collins MD (Electronically Signed) Final Date: 24 Feb 2025 13:15 S
--- NOTE | 2025-02-24 18:19 | PM.TDS ---
Transfer Summary Providers Date of Admission: 02/23/25 17:05 Date of Discharge/Transfer: 02/24/25 Attending Provider at Admission: Levi Wilson MD Attending Provider at Transfer: Levi Wilson MD Primary Care Provider: Chris Amin MD Transfer Plans: Anticipated date of transfer: 02/24/25. Diagnoses at Discharge Discharge Diagnosis (1) Hx of CABG: Status: Acute (2) HLD (hyperlipidemia): Status: Acute (3) BPH (benign prostatic hyperplasia): Status: Acute (4) Joint pain: Status: Acute (5) Effusion of knee joint right: Status: Acute (6) Septic encephalopathy: Status: Acute (7) Obstructive uropathy: Status: Acute (8) UTI (urinary tract infection): Status: Acute (9) Right kidney stone: Status: Acute (10) Transaminitis: Status: Acute Reason for Visit Reason for Visit right knee pain Hospital Course Hospital Course Nii Hendrix is a 74 year old male with a past medical history of CAD status post CABG, hypertension, BPH, who presents [facility] due to right knee swelling, fevers, confusion. Patient presented to [facility] for concerns for right knee swelling, concerns for septic arthropathy, status post arthrocentesis emergency room, started on broad-spectrum antibiotic therapy, [place] service consulted, blood cultures so far no growth, arthrocentesis cultures so far no growth. Patient was subsequently found to have a urinary tract infection, then subsequently found to have right obstructive uropathy with right pyelonephritis and a UTI on CT imaging. Patient will be transferred to [facility] in [place] for urology evaluation and stenting of right ureter for right obstructive uropathy, with right pyelonephritis, with UTI, with septic encephalopathy. Certainly there is a possibility of right septic arthropathy, with possible seeding infection from bacteremia from the right obstructing stone ureteral stone, however blood cultures so far negative, arthrocentesis cultures so far negative; certainly gouty flare is also a possibility but crystal fluid analysis is pending. Patient was also found to have a brain mass, seen on CT imaging he is going to have to follow-up with neurology, with outpatient MRI. Patient encephalopathy has worsened the evening of 02/24/2025, likely febrile state, septic encephalopathy, have kept him n.p.o., Tylenol for fevers, monitor mentation closely. Patient did have a recent tick bite I have him on doxycycline. He has a history of CABG in 2023, no history of stenting, aspirin and Plavix currently are on hold as there are plans on surgical intervention for patient's right obstructive uropathy. Physical Exam Const: COMMON NORMALS: no acute distress ORIENTATION/CONSCIOUSNESS: Yes awake, Yes oriented to person, Yes oriented to place and Yes confused; not oriented to time Eye: COMMON NORMALS: Equal, round and reactive pupils present PUPIL: Yes Equal, round and reactive pupils present Resp: COMMON NORMALS: normal respiratory effort, No retractions, No use of accessory muscles and clear to auscultation bilaterally AUSCULTATION: clear to auscultation bilaterally Cardio: COMMON NORMALS: regular rate, regular rhythm, S1 normal heart sound present and S2 normal heart sound present RATE: regular rate RHYTHM: regular rhythm HEART SOUNDS: S1 normal heart sound present and S2 normal heart sound present GI: COMMON NORMALS: Normal to inspection, nondistended, normoactive bowel sounds present and non-tender Extremity: COMMON NORMALS: no pedal edema NARRATIVE EXTREMITY EXAM: Right knee status post arthrocentesis, swollen, slightly erythematous, no significant tenderness Neuro: SENSORIUM/ORIENTATION: Yes oriented to person, Yes oriented to place and No oriented to time Psych: COMMON NORMALS: mental status grossly normal Urinary Catheter Management: Russ: Cath Placed During This Visit: yes Reason for Continuing Indwelling Catheter: Acute Urinary Retention or Obstruction Urinary Catheter Date of Insertion: 02/24/25 Urinary Catheter Time of Insertion: 17:42 TS Data Studies Completed and Pending Pending at discharge Category Date Time Status Blood Culture Stat Lab 02/23/25 19:04 Results Body Fluid Culture & GS Stat Lab 02/23/25 15:46 Results Complete Blood Count w/Auto AM LABS Lab 02/25/25 04:00 Ordered Complete Blood Count w/Auto AM LABS Lab 02/26/25 04:00 Ordered Comprehensive Metabolic Panel AM LABS Lab 02/25/25 04:00 Ordered Comprehensive Metabolic Panel AM LABS Lab 02/26/25 04:00 Ordered Magnesium AM LABS Lab 02/25/25 04:00 Ordered Magnesium AM LABS Lab 02/26/25 04:00 Ordered Phosphorus AM LABS Lab 02/25/25 04:00 Ordered Phosphorus AM LABS Lab 02/26/25 04:00 Ordered Tick Panel Stat Lab 02/23/25 19:02 Received Urine Culture Routine Lab 02/23/25 18:56 Received Vancomycin Trough Timed Lab 02/26/25 17:00 Ordered Completed Studies During Hospitalization Category Date Time Status CT abdomen pelvis wo con [id number] Routine Cat Scan 02/24/25 11:[address] head wo con* [id number] Stat Cat Scan 02/24/25 07:[address] knee RT wo con* [id number] Routine Cat Scan 02/24/25 14:07 Completed XR chest 1V portable [id number] Routine Exams 02/24/25 07:00 Completed XR knee RT 3V* [id number] Stat Exams 02/23/25 15:20 [place] [id number] Routine Ultrasound 02/24/25 18:03 Completed CV. echo complete* [id number] Routine Ultrasound 02/24/25 18:10 Completed US abdomen complete* [id number] Stat Ultrasound 02/24/25 09:14 Completed Laboratory Last Values WBC 11.18 10^3/uL (3.29-11.43) 02/24/25 05:17 RBC 4.13 10^6/uL (3.85-5.65) 02/24/25 05:17 Hgb 11.10 g/dL (11.27-16.99) L 02/24/25 05:17 Hct 34.6 % (37-53) L 02/24/25 05:17 MCV 83.8 fl (82-101) 02/24/25 05:17 MCH 26.9 pg (27-33) L 02/24/25 05:17 MCHC 32.1 g/dL (30-55) 02/24/25 05:17 RDW 15.9 % (12.1-15.1) H 02/24/25 05:17 Plt Count 189 10^3/cmm (157-399) 02/24/25 05:17 MPV 9.1 fL (7.4-10.4) 02/24/25 05:17 Neut % (Auto) 85.8 % 02/24/25 05:17 Lymph % (Auto) 4.4 % 02/24/25 05:17 [place] % (Auto) 8.5 % 02/24/25 05:17 Eos % (Auto) 0.5 % 02/24/25 05:17 Baso % (Auto) 0.4 % 02/24/25 05:17 Neut # (Auto) 9.59 10^3/uL (1.8-7.7) H 02/24/25 05:17 Lymph # (Auto) 0.5 10^3/uL (0.8-4.8) L 02/24/25 05:17 [place] # (Auto) 1.0 10^3/uL (0.2-0.9) H 02/24/25 05:17 Eos # (Auto) 0.1 10^3/uL (0.0-0.8) 02/24/25 05:17 Baso # (Auto) 0.0 10^3/uL (0.0-0.1) 02/24/25 05:17 Nucleated RBC % (auto) 0 % 02/24/25 05:17 Nucleated RBCs # 0.0 /100WBC 02/24/25 05:17 ESR 67 mm/hr (0-10) H 02/23/25 16:06 Sodium 136 mmol/L (136-145) 02/24/25 05:17 Potassium 4.1 mmol/L (3.5-5.1) 02/24/25 05:17 Chloride 101 mmol/L (98-107) 02/24/25 05:17 Carbon Dioxide 23 mmol/L (22-29) 02/24/25 05:17 Anion Gap 16.1 (5-19) 02/24/25 05:17 BUN 27 mg/dL (8-23) H 02/24/25 05:17 Creatinine 1.4 mg/dL (0.7-1.2) H 02/24/25 05:17 GFR Calculation Not Reportable 02/24/25 05:17 Glucose 87 mg/dL (65-115) 02/24/25 05:17 Estimat Average Glucose 111 02/23/25 16:06 Hemoglobin A1c 5.5 % (4.0-6.0) 02/23/25 16:06 Calculated Osmolality 286 mOsm/kg (285-295) 02/24/25 05:17 Lactic Acid 1.0 mmol/L (0.5-2.2) 02/23/25 16:06 Uric Acid 4.8 mg/dL (3.4-7.0) 02/23/25 16:06 Calcium 8.3 mg/dL (8.5-10.5) L 02/24/25 05:17 Phosphorus 2.5 mg/dL (2.5-4.5) 02/24/25 05:17 Magnesium 2.0 mg/dL (1.7-2.3) 02/24/25 05:17 Total Bilirubin 1.2 mg/dL (0.15-1.2) 02/24/25 05:17 GGT 149 U/L (8-61) H 02/24/25 05:17 AST 41 U/L (0-40) H 02/24/25 05:17 ALT 46 U/L (0-41) H 02/24/25 05:17 Alkaline Phosphatase 300 U/L (40-130) H 02/24/25 05:17 C-Reactive Protein 279.6 mg/L (0.0-4.9) H 02/23/25 16:06 Total Protein 5.6 g/dL (6.6-8.7) L 02/24/25 05:17 Albumin 2.9 g/dL (3.5-5.2) L 02/24/25 05:17 Globulin 2.7 g/dL (1.3-4.6) 02/24/25 05:17 Lipase 42 U/L (13-60) 02/24/25 05:17 Procalcitonin 0.86 ng/mL (0-0.5) H 02/23/25 16:06 TSH 3.15 uIU/mL (0.27-4.20) 02/23/25 16:06 Urine Color Yellow (Yellow) 02/23/25 18:56 Urine Appearance Turbid (CLEAR) A 02/23/25 18:56 Urine pH 8.0 (5-7) A 02/23/25 18:56 Ur Specific [place] 1.020 (1.005-1.030) 02/23/25 18:56 Urine Protein 3+ (Negative) A 02/23/25 18:56 Urine Glucose (UA) Negative (Normal) 02/23/25 18:56 Urine Ketones Negative (Negative) 02/23/25 18:56 Urine Blood 2+ (Negative) A 02/23/25 18:56 Urine Nitrate Positive (Negative) A 02/23/25 18:56 Urine Bilirubin Negative (Negative) 02/23/25 18:56 Urine Urobilinogen 1.0 mg/dL (Negative) 02/23/25 18:56 Ur Leukocyte Esterase 3+ (Negative) A 02/23/25 18:56 Urine RBC 0-2 /hpf (0-2) 02/23/25 18:56 Urine WBC >100 /hpf (0-5) H 02/23/25 18:56 Ur Squamous Epith Cells 0-5 /hpf (0-5) 02/23/25 18:56 Calcium Oxalate Crystal 0-4 /hpf H 02/23/25 18:56 Amorphous Sediment Not Reportable 02/23/25 18:56 Urine Bacteria 4+ /hpf (NONE) H 02/23/25 18:56 Hyaline Casts 10.96 /lpf 02/23/25 18:56 Fine Granular Casts 0-4 /lpf H 02/23/25 18:56 Coarse Granular Casts 0-4 /lpf H 02/23/25 18:56 Fluid Crystals Sent to pathology 02/23/25 15:46 Synovial Color Other (PALE YELLOW) 02/23/25 15:46 Synovial Appearance Turbid (CLEAR) 02/23/25 15:46 Synovial pH 6 (7.0-7.5) L 02/23/25 19:02 Synovial WBC 99352 /uL (0-150) H 02/23/25 15:46 Synovial RBC 41 10^3/uL (0-0) H 02/23/25 15:46 Synovial Mononuclear 4.878 10^3/uL 02/23/25 15:46 Synov Polynuclear WBCs 34.472 10^3/uL 02/23/25 15:46 Synovial Other Cells Not Reportable 02/23/25 15:46 Synovial Polynuclear % 87.600 % 02/23/25 15:46 Synovial Mononuclear % 12.400 % 02/23/25 15:46 Path Cons w/Slide Yes 02/23/25 15:46 Radiology Impressions Knee X-Ray 02/23/25 15:20 IMPRESSION: No acute findings. Chest X-Ray 02/24/25 07:00 IMPRESSION: No acute cardiopulmonary abnormality identified. Head CT 02/24/25 07:39 IMPRESSION: 1. Right costophrenic angle mass, differential diagnosis includes acoustic schwannoma and meningioma. Comparison with prior studies recommended, if available. Otherwise MRI or followup recommended. 2. Age appropriate supratentorial and infratentorial atrophy. 3. Mild chronic white matter microvascular ischemic disease. 4. No acute intracranial injury identified. . Abdomen Ultrasound 02/24/25 09:14 IMPRESSION: 1. Cholelithiasis. 2. Right renal benign cyst. No follow-up imaging is recommended. 3. Mild right renal pelviectasis. 4. Left renal possible mass. Computed tomography without and with IV contrast or MRI recommended for further evaluation. Abdomen/Pelvis CT 02/24/25 11:57 IMPRESSION: 1. Right obstructive uropathy secondary to a right ureterovesical junction calculus. 2. Bilateral renal calyceal lithiasis. 3. Cholelithiasis. 4. Right renal benign cyst. No follow-up imaging is recommended. 5. Chronic calcific prostatitis. 6. Coronary atherosclerosis. COMMENTS: Consistent with the [employer]'s Incidental Findings Committee white paper (J Am Chana Radiol 2018): Any incidental renal lesion less than 1 cm or classified as too small to characterize, or any incidental cystic renal lesion characterized as simple-appearing, is likely benign. No follow-up imaging is recommended for these lesions per consensus recommendations based on imaging criteria. Knee CT 02/24/25 14:07 IMPRESSION: 1. No acute bony injury identified. 2. Medial and patellofemoral compartment predominant primary osteoarthritis. 3. Moderate knee joint effusion with interval intra-articular gas. Clinical correlation (previous procedure? evidence of infection?) is recommended. Venous Duplex 02/24/25 18:03 IMPRESSION: No evidence of deep vein thrombosis. Recent Clincial Data Last Vital Signs Temp 103.6 F H 02/24/25 17:43 Pulse 89 02/24/25 16:00 Resp 19 H 02/24/25 16:00 BP 117/52 02/24/25 16:00 Pulse Ox 95 02/24/25 16:00 O2 Del Method Room Air 02/24/25 16:00 O2 Flow Rate 2 02/23/25 16:50 Vital Signs Temp Pulse Resp BP Pulse Ox O2 Del Method 02/24/25 17:43 103.6 F H 02/24/25 17:32 98.5 F 02/24/25 16:00 98.2 F 89 19 H 117/52 95 Room Air 02/24/25 11:37 98.2 F 88 18 132/65 90 Room Air 02/24/25 08:00 98.5 F 86 18 142/68 96 Room Air Intake & Output/Weight 02/22/25 02/23/25 02/24/25 02/25/25 06:59 06:59 06:59 06:59 Intake Total 550 / 550 1050 / 1050 Output Total 750 / 750 Balance -200 / -200 1050 / 1050 Weight 71.305 kg Vitals Last Vital Signs Temp 103.6 F H 02/24/25 17:43 Pulse 89 02/24/25 16:00 Resp 19 H 02/24/25 16:00 BP 117/52 02/24/25 16:00 Pulse Ox 95 02/24/25 16:00 O2 Del Method Room Air 02/24/25 16:00 O2 Flow Rate 2 02/23/25 16:50 TS Medications Medications Acetaminophen (Acetaminophen 325 Mg Tablet) 650 mg PO Q6H PRN PRN Reason: Mild/Mod Pain Or Temp >/= 101 Last Admin: 02/24/25 17:43 Dose: 650 mg Doxycycline Monohydrate (Doxycycline 100 Mg Tablet) 100 mg PO BID [facility]; Protocol Last Admin: 02/24/25 18:01 Dose: 100 mg Enoxaparin Sodium (Enoxaparin 40 Mg/0.4 Ml Syringe) 40 mg SUBCUT Q24H [facility] Last Admin: 02/24/25 18:01 Dose: 40 mg Hydromorphone HCl (Hydromorphone 0.5 Mg/0.5 Ml Inj) 0.25 mg IVP Q4H PRN PRN Reason: pain Last Admin: 02/24/25 17:43 Dose: 0.25 mg Piperacillin Sod/Tazobactam (Sod 3.375 gm/ Sodium Chloride) 50 mls @ 12.5 mls/hr IV Q8H [facility] Last Infusion: 02/24/25 14:34 Dose: Infused Vancomycin HCl (Vancocin) 1,250 mg in 250 mls @ 250 mls/hr IV Q24H [facility] Last Admin: 02/24/25 17:44 Dose: 250 mls/hr Sodium Chloride (Sodium Chloride 0.9%) 1,000 mls @ 50 mls/hr IV .Q20H [facility] Last Admin: 02/24/25 17:44 Dose: 50 mls/hr Lactulose (Lactulose Oral Liq 20 Gm/30 Ml Udc) 20 gm PO Q12H [facility] Last Admin: 02/24/25 14:33 Dose: Not Given Morphine Sulfate (Morphine 4 Mg/Ml Sdv 1 Ml) 2 mg IVP Q4H PRN PRN Reason: SEVERE PAIN Last Admin: 02/24/25 12:10 Dose: 2 mg Naloxone HCl (Naloxone 0.4 Mg/Ml Sdv) 0.1 mg IVP Q2M PRN PRN Reason: OPIATERV Ondansetron HCl (Ondansetron 2 Mg/Ml Sdv 2 Ml) 4 mg IVP Q8H PRN PRN Reason: vomiting, or N/V if npo Pantoprazole Sodium (Pantoprazole 40 Mg Sdv) 40 mg IVP Q24H [facility] Last Admin: 02/24/25 18:01 Dose: 40 mg Senna/Docusate Sodium (Sennosides-Docusate Tablet) 1 tab PO BID [facility] Last Admin: 02/24/25 17:43 Dose: 1 tab Tamsulosin HCl (Tamsulosin 0.4 Mg Capsule) 0.4 mg PO DAILY [facility] Last Admin: 02/24/25 09:49 Dose: 0.4 mg Discontinued Medications Acetaminophen (Acetaminophen 325 Mg Tablet) 650 mg PO ONCE ONE Stop: 02/23/25 17:05 Last Admin: 02/23/25 17:25 Dose: 650 mg Aspirin (Aspirin 81 Mg Ec Tablet) 81 mg PO DAILY [facility] Hydromorphone HCl (Hydromorphone 0.5 Mg/0.5 Ml Inj) 1 mg IVP ONCE ONE Stop: 02/23/25 15:21 Last Admin: 02/23/25 15:33 Dose: 1 mg Vancomycin HCl 1,000 mg/ (Sodium Chloride) 250 mls @ 250 mls/hr IV ONCE ONE; Protocol Stop: 02/23/25 18:01 Last Infusion: 02/23/25 19:28 Dose: Infused Piperacillin Sod/Tazobactam (Sod 3.375 gm/ Sodium Chloride) 50 mls @ 100 mls/hr IV ONCE ONE; Protocol Stop: 02/23/25 17:31 Last Infusion: 02/23/25 17:48 Dose: Infused Vancomycin HCl / Sodium (Chloride) 250 mls @ 0 mls/hr [id number] PROTOCOL [facility]; Protocol Piperacillin Sod/Tazobactam (Sod / Sodium Chloride) 50 mls @ 0 mls/hr [id number] CONT [facility]; Protocol Sodium Chloride (Sodium Chloride 0.9%) 1,000 mls @ 50 mls/hr IV .Q20H [facility] Last Infusion: 02/24/25 11:09 Dose: Infused Ketorolac Tromethamine (Ketorolac 30 Mg/Ml Inj) 15 mg IVP ONCE ONE Stop: 02/23/25 16:55 Last Admin: 02/23/25 17:00 Dose: 15 mg Lidocaine HCl (Lidocaine 1% 10 Ml Inj) 10 ml SUBCUT ONCE ONE Stop: 02/23/25 15:27 Last Admin: 02/23/25 15:33 Dose: 10 ml Morphine Sulfate (Morphine 4 Mg/Ml Sdv 1 Ml) 4 mg IVP ONCE ONE Stop: 02/23/25 17:05 Last Admin: 02/23/25 17:23 Dose: 4 mg Allergies bisoprolol Allergy (Intermediate, Verified 02/21/25 11:51) ADV-Weakness carvedilol Allergy (Intermediate, Verified 02/21/25 11:51) Urinary retention [id number] Reductase Inhibitor Allergy (Verified 02/21/25 11:51) ADR-Abdominal Pain Home Medications amlodipine 10 mg tablet 10 mg PO DAILY #90 tabs 01/03/25 [Rx Confirmed 02/23/25] tramadol 50 mg tablet 50 mg PO BID PRN pain #60 tabs 01/03/25 [Rx Confirmed 02/23/25] tamsulosin 0.4 mg capsule 0.4 mg PO DAILY #90 caps 02/07/25 [Rx Confirmed 02/23/25] diclofenac sodium 1 % topical gel (Voltaren Arthritis Pain) 4 g topical QID #100 grams 02/21/25 [Rx Confirmed 02/23/25] aspirin 81 mg tablet,delayed release 81 mg PO DAILY 02/23/25 [History Confirmed 02/23/25] clopidogrel 75 mg tablet 75 mg PO DAILY 02/23/25 [History Confirmed 02/23/25] Discharge Plan Discharge Patient Disposition: Home Condition: Stable Prescriptions: No Action tramadol 50 mg tablet 50 mg PO BID PRN (Reason: pain) Qty: 60 0RF amlodipine 10 mg tablet 10 mg PO DAILY Qty: 90 1RF diclofenac sodium [Voltaren Arthritis Pain] 1 % gel 4 g topical QID Qty: 100 0RF Rx Instructions: apply to single knee, ankle, foot; for foot includes sole/toes/top of foot tamsulosin 0.4 mg capsule 0.4 mg PO DAILY Qty: 90 1RF aspirin [Aspir-81] 81 mg Tablet,Delayed Release (Dr/Ec) 81 mg PO DAILY clopidogrel 75 mg tablet 75 mg PO DAILY Discharge Orders: Transfer Out of Facility (Order); Ordered 02/24/25 Ordered By: Levi Wilson Referrals: Chris Amin MD [Primary Care Provider, [facility]] Patient Instructions: Opioid Safety Transfer Attestations Time Spent in Transfer Care: greater than 30 min Quality Metrics Clinical Quality Measures [ No reported AMI, CVA or VTE this stay] Coding Level of Care Code Acute Code for Chg Fwd Diagnoses Hx of CABG Z95.1 HLD (hyperlipidemia) E78.5 BPH (benign prostatic hyperplasia) N40.0 Joint pain M25.50 Effusion of knee joint right M25.461 Septic encephalopathy G93.41 Obstructive uropathy N13.9 UTI (urinary tract infection) N39.0 Right kidney stone N20.0 Transaminitis R74.01
== END 2025-02-24 19:49 | disposition short-term general hospital (02) | DRG 871 ==
LOC: ER 17:11 → MEDSURG 17:28
PROVIDERS: Admitting Provider Family Medicine; Emergency Provider Emergency Medicine; PCP Family Medicine; Visit Provider Family Medicine
DX: A41.9 Sepsis, unspecified organism (principal); G93.41 Metabolic encephalopathy; N20.2 Calculus of kidney with calculus of ureter; N17.9 Acute kidney failure, unspecified; I25.10 Atherosclerotic heart disease of native coronary artery without angina pectoris; E78.5 Hyperlipidemia, unspecified; N40.1 Benign prostatic hyperplasia with lower urinary tract symptoms; R35.0 Frequency of micturition; M25.461 Effusion, right knee; N13.9 Obstructive and reflux uropathy, unspecified; I10 Essential (primary) hypertension; G93.9 Disorder of brain, unspecified; G89.29 Other chronic pain; Z79.82 Long term (current) use of aspirin; Z79.02 Long term (current) use of antithrombotics/antiplatelets; Z95.1 Presence of aortocoronary bypass graft
CPT/HCPCS: 36415; 51702; 70450; 71045; 73562; 73700; 74176; 76700; 80048; 80053; 80503; 81001; 82977; 83036; 83605; 83690; 83735; 83986; 84100; 84145; 84443; 84550; 85025; 85651; 86140; 86618; 86666; 86757; 87040; 87070; 87075; 87086; 87205; 89050; 93306; 93970; 94664; 96372; J1171; J1650; J1885; J2270; J2470; J2543; J3370; J7030; J7050; J9999

== ENCOUNTER → 2025-03-14 13:15 | Outpatient (BNVA) | payer MEDICARE, SELFPAY | PROVIDERS: PCP Family Medicine; Visit Provider Orthopaedic Surgery | DX: Z01.818 Encounter for other preprocedural examination (principal); M25.561 Pain in right knee; G89.29 Other chronic pain; M17.12 Unilateral primary osteoarthritis, left knee; M85.661 Other cyst of bone, right lower leg | CPT/HCPCS: 36415; 80053; 81001; 83540; 83550; 85025; 99214 ==

== ENCOUNTER → 2025-03-20 14:01 | Outpatient (BNVA) | payer MEDICARE, SELFPAY | PROVIDERS: PCP Family Medicine; Visit Provider Internal Medicine | DX: Z01.818 Encounter for other preprocedural examination (principal); I25.10 Atherosclerotic heart disease of native coronary artery without angina pectoris; I10 Essential (primary) hypertension; Z79.02 Long term (current) use of antithrombotics/antiplatelets; Z79.82 Long term (current) use of aspirin; Z87.891 Personal history of nicotine dependence | CPT/HCPCS: 99214 ==

== ENCOUNTER → 2025-03-27 09:12 | Outpatient (BNVA) | payer MEDICARE, SELFPAY | PROVIDERS: PCP Family Medicine; Visit Provider Family Medicine | DX: Z01.818 Encounter for other preprocedural examination (principal) | CPT/HCPCS: 93005 ==

== ENCOUNTER 2025-04-04 05:41 | Day surgery (SDC) | payer MEDICARE, SELFPAY ==
[2025-04-04] VITALS (22 sets, daily range): BP systolic 110–137; BP diastolic 31–84; PULSE 65–80; RESP 12–24; TEMP 36.3–36.8; O2SAT 93–100; BMI 30.7
--- NOTE | 2025-04-04 06:19 | ANES.PREANE2 ---
Pre-Anesthetic Assessment Height/Weight: Height 5 ft 7 in Weight 196 lb Temp Pulse Resp BP Pulse Ox O2 Del Method 97.7 F 69 18 132/62 99 Room Air 04/04/25 06:05 04/04/25 06:05 04/04/25 06:05 04/04/25 06:05 04/04/25 06:05 04/04/25 06:08 Preop Diagnosis: Knee arthritis Operation Date: 04/04/25 07:00 Proposed Procedures p RIGHT Total Knee Arthroplasty(Right) - Waldemar Freedman MD Was Beta [place] taken within 24 hours: N/A Was Clonidine taken within 24 hours: N/A Last intake: Intake Last Liquid Date 04/03/25 Last Liquid Time 18:00 Last Solid Date 04/03/25 Last Solid Time 18:00 Social No alcohol and No tobacco Exam alert, oriented x 3, clear to auscultation bilaterally and regular rate & rhythm Airway Submandibular: within normal limits Cervical ROM: within normal limits Mallampati: Class III Dentition: full Comments: Comments: Large pimentel Anesthetic Plan ASA status: 3 Anesthesia: Regional (specify below) Other: No prior issues with anesthesia NPO since yesterday evening History of hypertension on amlodipine Prior lumbar decompression over 20 years ago CAD history, s/p CABG x 3. On chronic Plavix. 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 on recent echo in January 2025 Patient follows with cardiology, recent visit 03/20/2025 with cardiac clearance Labs reviewed from 03/14/2025 and acceptable for procedure today EKG showing sinus rhythm with PVCs Plan for spinal anesthesia with postop nerve block Medications/Allergies Home Medications ?Medication ?Instructions ?Recorded ?Confirmed ?Last Taken ?Type amlodipine 10 mg tablet 10 mg PO DAILY #90 tabs 01/03/25 04/04/25 04/04/25 03:00 Rx tamsulosin 0.4 mg capsule 0.4 mg PO DAILY #90 caps 02/07/25 04/03/25 04/03/25 Rx aspirin 81 mg tablet,delayed 81 mg PO DAILY 02/23/25 04/03/25 03/30/25 History release clopidogrel 75 mg tablet 75 mg PO DAILY 02/23/25 04/03/25 03/30/25 History tramadol 50 mg tablet 50 mg PO BID PRN pain #60 tabs 03/11/25 04/03/25 Unknown Rx Allergies Allergy/AdvReac Type Severity Reaction Status Date / Time bisoprolol Allergy Intermediate ADV-Weaknes Verified 04/04/25 06:04 s carvedilol Allergy Intermediate Urinary Verified 04/04/25 06:04 retention Dfskbvl-ZVT-RkV Reductase Allergy ADR-Abdominal Verified 04/04/25 06:04 Inhibitor Pain PFSH Anesthesia Medical History Urinary frequency Chronic pain BPH (benign prostatic hyperplasia) Surgical History History of tonsillectomy History of laminectomy History of appendectomy History of heart bypass surgery Family History Grandfather CAD (coronary artery disease) Grandmother Stroke Father Abdominal abscess Mother Heart failure Social History Smoking and tobacco/nicotine status: never used tobacco/nicotine Alcohol intake: never Substance/Drug Use: never Data Anesthesia Cardiac Studies: Echocardiogram 02/24/25 Stress Echocardiogram 01/26/24
--- NOTE | 2025-04-04 06:55 | W.PM.OPSUD ---
Surgery/Procedure H&P Update DATE OF PROCEDURE: April 04, 2025 DATE H&P PERFORMED: 03/27/25 H&P UPDATE INFORMATION: I have reviewed H&P completed within last 30 days, I have examined patient prior to procedure and No changes to prior documentation PREOP DIAGNOSIS: Knee arthritis PLANNED PROCEDURE: Operation Date: 04/04/25 07:00 Proposed Procedures p RIGHT Total Knee Arthroplasty(Right) - Waldemar Freedman MD
[2025-04-04] MEDS: ceFAZolin 2,000 mg SDV 2000 MG IVP ×2 (06:59→15:36)
[2025-04-04] MEDS: tranexamic acid 1,000 mg/10mL SDV 1000 MG IV (07:20)
--- NOTE | 2025-04-04 08:46 | XR_ITS ---
WS: [id number] XR knee RT 1-2V [id number] REASON FOR EXAM: Right total knee arthroplasty FINDINGS: Total right knee arthroplasty. Components of the arthroplasty are intact and in proper position and alignment. No focal bony abnormality. XR/XR knee RT 1-2V [id number] IMPRESSION: Total right knee arthroplasty without abnormality.
--- NOTE | 2025-04-04 08:54 | P.OP_ITS ---
Operative Report Date of procedure: April 04, 2025 Surgeon: Waldemar Freedman MD Procedure: Preoperative diagnosis: End-stage degenerative joint disease right knee Postoperative diagnosis: Same Procedure: Right total knee arthroplasty with debridement of subchondral cysts and the use of Generax bone morphogenic protein paste Surgeon: Waldemar Freedman MD [employer] Supervisor: STONEY Finnegan's assistance was necessary for positioning the patient, assistance during the procedure, wound closure, dressing placement, and transfer the patient to the PACU Anesthesia: Spinal with IV sedation EBL: 50 cc Tourniquet time: 46 minutes at 250 mmHg Indications: Nii is a 74-year-old white male who is seen in the orthopedic clinics for debilitating knee pain. Has had difficulties and problems with this for quite some time now. However he has had several health issues that have held him out from having any type of surgical intervention at this time. Once he was seen by me all medical problems appear to be under control and he did have evidence of his x-rays of severe degenerative arthritis of his right knee. He has failed all conservative measures in the past. Therefore at this time is offered a total knee arthroplasty. All risk benefits and treatment alternatives were discussed with him and he was agreeable to this at this time. Procedure: After obtaining the consent patient was taken to the operating room placed on the operative table supine position and then spinal anesthetic administered. Once good anesthesia was achieved patient was positioned on the bed supine position and given some IV sedation. Pneumatic cuffs placed around proximal right thigh and right leg and knee were prepped and draped in usual fashion. After surgical timeout and gravity exsanguination of the leg the pneumatic cuffs inflated to 250 mmHg. With the foot in the foot holding device the knee was flexed and held at 90 degrees. Longitudinal incision made from the superior pole of the patella down to the tibial tubercle. Sharp dissection taken down to subcutaneous tissue and electrocautery was used for hemostasis. Dissection was extended slightly anteriorly. Soft tissue was stripped over the extensor mechanism. Extensor mechanisms opened up along medial parapatellar incision line. Once within bloody synovial fluid was encountered. Soft tissues were sharply debrided including fat pad anterior horns of menisci. Also stripping of the medial capsule of the tibia to expose the knee further. Leg was put up to full extension and patella is everted 180 degrees. Soft tissue release around it with electrocautery. Rongeur was used to remove osteophytes around the patella. Patella was sized for reaming mL and subsequently reamed down to 14 mm thickness. At this point further soft tissue removed including fat pad and ACL from the knee. Knee is flexed back up to 90 degrees appropriate retractors placed and the patella was placed in the lateral gutter. PCL retractor was placed to expose the proximal tibia. Tibial cutting guide was position for 2 mm cut at the most affected side. This is positioned and pinned in place with appropriate posterior slope. A small osteotome was driven anterior to the PCL to protect it during cutting. Sagittal saw was used to make the tibial plateau cut. Once this was completed a box cut was made around the insertion of the PCL and tibial cut was removed piecemeal. At this point was found that there is a large cyst measuring greater than 1 cm in diameter and in depth the posterior lateral aspect of the tibial plateau. This was cleaned out with a curette and then rongeur. Taken all the way down to fresh bone. Drill holes now made in the distal femur just anterior to the intercondylar notch. Guide bernabe was placed obtained in medullary canal and distal cutting block was positioned on the distal femur. This was pinned in place and guide bernabe removed. Sagittal saw was used to make distal cut of the femur without any difficulty. Distal femur sized to size 8 femoral cutting block. Appropriate drill holes were placed to the distal femur for the post of the cutting block. Size 8 cutting block was positioned and anterior posterior and chamfer cuts were made without any difficulties. At this point a small cyst was found on the lateral femoral condyle also measuring proxy 1/2 to 2.7 cm in diameter. This too was cleaned out with a curette and rongeurs down to stable bone. PCL retractor was placed in the knee again proximal tibia was prepared for tray. Size E tibial tray was positioned with an external guide bernabe. This is pinned in place. Trial 10 mm spacer was placed on this. At this point femoral trial component was then impacted on the distal femur. Knee was put the range of motion found to be stable with full range of motion. Patella was everted size a size 35 patellar button. Trial component was placed after drill holes placed in the posterior aspect of patella. Once this is in place soft tissues were stripped from the bursal region that were adhered to the extensor mechanism. Knee was put the range of motion found to be stable. All trial components were removed at this point. Joint line was washed and cleared of all debris. It was then dried. Generax was then injected into these cystic areas and leveled off to the level of bone. Tibial component had been prepped prior to this with the a punch for the intermaxillary post of the tibial component size 8 permanent tibial component was impacted in the proximal tibia. Subsequently a size 8 femoral component was impacted on the distal femur. Trial size 10 spacer was placed and found to have adequate fit and fill as well as full range of motion. Therefore a size 10 permanent polyethylene spacer was placed and locked in place. Size 35 patellar button was then placed on the posterior patella and impacted. Knee was put through range of motion found good stability good tracking the patella. Knee is washed coachman sterile irrigation. Pneumatic cuff is deflated at this time after 46 minutes in total joint time. Electrocautery used for hemostasis. Leg was put up on the knee bump for slight flexion reasons. Extensor back is repaired with #1 Vicryl [id number] sutures. Subcutaneous is repaired with 0 Vicryl interrupted sutures. Skin was closed with skin alexis. Wounds are clean and dry dressed Xeroform gauze sterile gauze dressing, Webril, and Adaptic for compression. Patient was awakened transferred to cover room stable condition
[2025-04-04] MEDS: fentaNYL 50 mcg/mL INJ 2mL IVP (09:33)
--- NOTE | 2025-04-04 09:42 | ANES.PROC ---
Anesthesia Procedures Procedure/Date: 04/04/25 Nerve Block ^: Nerve Block 1: Main Anesthesia: general anesthesia Time Out Performed: Yes Consent: requested by attending/covering physician and from patient Nerve block location: adductor canal Anesthesia monitors applied: pulse oximetry, EKG, BP cuff and oxygen Nerve block position: supine Anesthetic Used: ropivicaine 0.5% Amount of anesthesia used (mL): 20 Ultrasound used to: recognize landmarks Nerve Stimulator Used?: Yes Interscalene/Femoral BLK: other needle (pjunk 4inch) Injection: neg aspiration of heme Patient Tolerated Procedure: well Complications: none Nerve Block 2: Main Anesthesia: general anesthesia Time Out Performed: Yes Consent: requested by attending/covering physician and from patient Nerve block location: other (IPACK) Anesthesia monitors applied: pulse oximetry, EKG, BP cuff and oxygen Nerve block position: supine Anesthetic Used: other (ropivicaine 0.2%) Amount of anesthesia used (mL): 20 Ultrasound used to: recognize landmarks Nerve Stimulator Used?: No Interscalene/Femoral BLK: other needle (pjunk 4inch) Injection: neg aspiration of heme Patient Tolerated Procedure: well Complications: none
--- NOTE | 2025-04-04 09:53 | ANE.PACU2 ---
Inpatient post-anesthesia follow up: Airway intact: Yes Vital signs: Temperature 97.4 F Pulse Rate 80 Respiratory Rate 17 Blood Pressure 127/64 Pulse Oximetry 97 Oxygen Delivery Me thod Room Air Oxygen Flow Rate 6 Fraction of Inspir ed Oxygen Hydration adequate: Yes Nausea and vomiting: No Pain level: 2 Mental status: Baseline
[2025-04-04] MEDS: mupirocin oint 22 gm 1 APPLIC NASAL ×2 (10:44→17:19)
[2025-04-04] MEDS: sennosides-docusate Tablet 2 TAB PO ×2 (10:45→17:17)
[2025-04-04] MEDS: multivitamin therapeutic Tablet 1 TAB PO (10:46)
[2025-04-04] MEDS: chlorhexidine gluconate 0.12% Btl 473 mL 30 ML MUCOUS MEM ×4 (10:47→20:33)
[2025-04-04] MEDS: HYDROcodone-acetaminophen 5-325 mg Tablet 1 TAB PO ×2 (13:43→22:34)
[2025-04-05] MEDS: ceFAZolin 2,000 mg SDV 2000 MG IVP ×2 (00:21→08:49)
[2025-04-05 03:47] VITALS: BP 122/70; PULSE 74; RESP 17; TEMP 36.7; O2SAT 96
[2025-04-05 05:12] LABS: Hematocrit 32.6 % (37-53); Hemoglobin 10.20 g/dL (11.27-16.99); Mean Corpuscular HGB Conc 31.3 g/dL (30-55); Mean Corpuscular Hemoglobin 25.7 pg (27-33); Mean Corpuscular Volume 82.1 fl (82-101); Nucleated Red Blood Cells % 0 %; Platelet Count 211 10^3/cmm (157-399); Red Blood Count 3.97 10^6/uL (3.85-5.65); White Blood Count 14.82 10^3/uL (3.29-11.43)
[2025-04-05 05:32] LABS: Anion Gap 16.2 (5-19); Blood Urea Nitrogen 22 mg/dL (8-23); Calcium 9.2 mg/dL (8.5-10.5); Carbon Dioxide 23 mmol/L (22-29); Chloride 105 mmol/L (98-107); Creatinine Clr Calc Pharmacy 87.5239; Glucose 132 mg/dL (65-115); Osmolality Calculated 295 mOsm/kg (285-295); Potassium 4.2 mmol/L (3.5-5.1); Sodium 140 mmol/L (136-145)
[2025-04-05 07:28] VITALS: BP 132/51; PULSE 92; RESP 16; TEMP 36.9; O2SAT 96
--- NOTE | 2025-04-05 08:26 | PC.SOCIAL ---
IMM Update Pg. 2 of IMM Updated and copy provided at bedside.
[2025-04-05] MEDS: multivitamin therapeutic Tablet 1 TAB PO (08:48)
[2025-04-05] MEDS: sennosides-docusate Tablet 2 TAB PO (08:50)
[2025-04-05] MEDS: chlorhexidine gluconate 0.12% Btl 473 mL 30 ML MUCOUS MEM (08:53)
[2025-04-05] MEDS: mupirocin oint 22 gm 1 APPLIC NASAL (08:54)
--- NOTE | 2025-04-05 09:45 | PM.DCS ---
Discharge Providers Date of Admission: 04/04/2025 Date of Discharge: April 05, 2025 Attending Provider at Admission: Waldemar Freedman MD Attending Provider at Discharge: Waldemar Freedman MD Primary Care Provider: Chris Amin MD Diagnoses at Discharge Other Information Additional DC diagnoses/information: Patient status post right knee total arthroplasty Reason for Visit Reason for Visit: M17.11 Hospital Course Hospital Course Patient mated on 04/04/2025 and underwent the above-stated procedure. He has tolerated this well and progress with physical therapy. He is stable on a walker ambulation. He has full flexion up to about 90 degrees at this time with nearly full extension actively. Physical Exam Narrative: On examination today patient sitting in a chair with his knee flexed at 90 degrees. He is able to straighten it out just short of full extension. Dressings are clear and dry. No other gross abnormalities are noted at this time. He is neurovascular intact in his right foot. Only complaints of pain are posterior knee into the calf musculature as well as incisional pain. As all of these are to be expected Urinary Catheter Management: Russ: Cath Placed During This Visit: yes, but has since been removed by the nurse Reason for Continuing Indwelling Catheter: Other Urinary Catheter Date of Insertion: 04/04/25 Urinary Catheter Time of Insertion: 07:05 Date Urinary Catheter Removed: 04/05/25 Time Urinary Catheter Discontinued: 06:23 Discharge Data Studies Completed and Pending Completed Studies During Hospitalization Category Date Time Status XR knee RT 1-2V [id number] Stat Exams 04/04/25 08:46 Completed Radiology Impressions Knee X-Ray 04/04/25 08:46 IMPRESSION: Total right knee arthroplasty without abnormality. Laboratory Results WBC 14.82 10^3/uL (3.29-11.43) H 04/05/25 04:33 RBC 3.97 10^6/uL (3.85-5.65) 04/05/25 04:33 Hgb 10.20 g/dL (11.27-16.99) L 04/05/25 04:33 Hct 32.6 % (37-53) L 04/05/25 04:33 MCV 82.1 fl (82-101) 04/05/25 04:33 MCH 25.7 pg (27-33) L 04/05/25 04:33 MCHC 31.3 g/dL (30-55) 04/05/25 04:33 RDW 15.1 % (12.1-15.1) 04/05/25 04:33 Plt Count 211 10^3/cmm (157-399) 04/05/25 04:33 MPV 9.2 fL (7.4-10.4) 04/05/25 04:33 Neut % (Auto) 87.1 % 04/05/25 04:33 Lymph % (Auto) 5.3 % 04/05/25 04:33 [place] % (Auto) 7.0 % 04/05/25 04:33 Eos % (Auto) 0.0 % 04/05/25 04:33 Baso % (Auto) 0.1 % 04/05/25 04:33 Neut # (Auto) 12.91 10^3/uL (1.8-7.7) H 04/05/25 04:33 Lymph # (Auto) 0.8 10^3/uL (0.8-4.8) 04/05/25 04:33 [place] # (Auto) 1.0 10^3/uL (0.2-0.9) H 04/05/25 04:33 Eos # (Auto) 0.0 10^3/uL (0.0-0.8) 04/05/25 04:33 Baso # (Auto) 0.0 10^3/uL (0.0-0.1) 04/05/25 04:33 Nucleated RBC % (auto) 0 % 04/05/25 04:33 Nucleated RBCs # 0.0 /100WBC 04/05/25 04:33 Sodium 140 mmol/L (136-145) 04/05/25 04:33 Potassium 4.2 mmol/L (3.5-5.1) 04/05/25 04:33 Chloride 105 mmol/L (98-107) 04/05/25 04:33 Carbon Dioxide 23 mmol/L (22-29) 04/05/25 04:33 Anion Gap 16.2 (5-19) 04/05/25 04:33 BUN 22 mg/dL (8-23) 04/05/25 04:33 Creatinine 0.8 mg/dL (0.7-1.2) 04/05/25 04:33 GFR Calculation Not Reportable 04/05/25 04:33 Glucose 132 mg/dL (65-115) H 04/05/25 04:33 Calculated Osmolality 295 mOsm/kg (285-295) 04/05/25 04:33 Calcium 9.2 mg/dL (8.5-10.5) 04/05/25 04:33 Procedures Performed Right total knee arthroplasty Vitals Last Vital Signs Temp 98.5 F 04/05/25 07:28 Pulse 92 04/05/25 07:28 Resp 16 04/05/25 07:28 BP 132/51 04/05/25 07:28 Pulse Ox 96 04/05/25 07:28 O2 Del Method Room Air 04/05/25 07:28 O2 Flow Rate 6 04/04/25 09:28 Discharge Plan Discharge Patient Disposition: Home Condition: Stable Prescriptions: New hydrocodone-acetaminophen 5-325 mg Tablet 1 tab PO Q6H PRN (Reason: Moderate Pain) Qty: 20 0RF No Action amlodipine 10 mg tablet 10 mg PO DAILY Qty: 90 1RF tramadol 50 mg tablet 50 mg PO BID PRN (Reason: pain) Qty: 60 0RF tamsulosin 0.4 mg capsule 0.4 mg PO DAILY Qty: 90 1RF aspirin [Aspir-81] 81 mg Tablet,Delayed Release (Dr/Ec) 81 mg PO DAILY clopidogrel 75 mg tablet 75 mg PO DAILY Discharge Orders: Discharge Order (Routine); Ordered 04/05/25 Ordered By: Waldemar Freedman Referrals: Waldemar Freedman MD [Physician, Orthopedics] - 04/11/25 1:00 pm Discharge Diet: Advance as tolerated and Usual diet Discharge Activity: Increase activity as tolerated, Use walker/crutches as instructed and As per PT/OT instructions Patient Instructions: Acute Wound Care (DC), Opioid Safety, Post Anesthesia Care, Patient Portal & Gely Instructions Activity Restrictions/Additional Instructions: Weightbearing as tolerated with the assistance of a walker. Continue to be active daily, to prevent pneumonia, constipation, blood clots and other postoperative complications. Work with therapy services as instructed and discussed. Maintain dry postoperative dressing. May shower with running water only, with dressing in place. Do not remove postoperative dressing until 2-week postoperative appointment. Do not soak incision site. Utilize narcotic pain medications to manage postoperative pain. May alternate with the use of Tylenol [id number]. Print Language: [place]ian Discharge Attestations Time Spent in Discharge Care*: greater than 30 min Quality Metrics Clinical Quality Measures [ No reported AMI, CVA or VTE this stay] Coding Level of Care Code Acute Code for Chg Steve
[2025-04-05] MEDS: HYDROcodone-acetaminophen 5-325 mg Tablet 1 TAB PO (10:10)
--- NOTE | 2025-04-05 11:03 | PC.OT ---
Attempted Occupational Therapy Evaluation today, Patient is discharged to Home and was not available for Occupational Therapy Evaluation at this time
[2025-04-05 11:15] VITALS: BP 132/51; PULSE 92; RESP 16; TEMP 36.9; O2SAT 96
== END 2025-04-05 10:55 | disposition home or self-care (01) ==
LOC: OR 05:45 → MEDSURG 09:33
PROVIDERS: PCP Family Medicine; Visit Provider Orthopaedic Surgery
PROC: (CPT 27447; principal; 2025-04-04 07:00)
DX: M17.11 Unilateral primary osteoarthritis, right knee (principal); Z79.82 Long term (current) use of aspirin; I25.10 Atherosclerotic heart disease of native coronary artery without angina pectoris; I50.20 Unspecified systolic (congestive) heart failure; N40.0 Benign prostatic hyperplasia without lower urinary tract symptoms; I11.0 Hypertensive heart disease with heart failure
CPT/HCPCS: 27447; 29877; 36415; 51702; 73560; 80048; 85025; 97116; 97161; A4216; C1763; C1776; J0690; J1100; J1885; J2250; J2371; J2405; J2704; J3010; J3490; J7030; J7120; J9999

== ENCOUNTER → 2025-04-11 12:50 | Outpatient (BNVA) | payer MEDICARE, SELFPAY | PROVIDERS: PCP Family Medicine; Visit Provider Orthopaedic Surgery | DX: Z96.651 Presence of right artificial knee joint (principal) | CPT/HCPCS: 73560; 73565; 99024 ==

== ENCOUNTER → 2025-04-19 08:04 | Outpatient (BNVA) | payer MEDICARE, SELFPAY | PROVIDERS: PCP Family Medicine; Visit Provider Orthopaedic Surgery | DX: Z96.651 Presence of right artificial knee joint (principal); Z01.89 Encounter for other specified special examinations | CPT/HCPCS: 73560; 73565; 99024 ==

== ENCOUNTER → 2025-06-10 14:50 | Outpatient (BNVA) | payer MEDICARE, SELFPAY | PROVIDERS: PCP Family Medicine; Visit Provider Family Medicine | DX: D50.9 Iron deficiency anemia, unspecified (principal); N40.0 Benign prostatic hyperplasia without lower urinary tract symptoms; Z12.5 Encounter for screening for malignant neoplasm of prostate | CPT/HCPCS: 80053; 82728; 83550; 84153; 85025 ==

== ENCOUNTER → 2025-06-20 07:52 | Outpatient (BNVA) | payer MEDICARE, SELFPAY | PROVIDERS: PCP Family Medicine; Visit Provider Orthopaedic Surgery | DX: Z98.890 Other specified postprocedural states (principal); Z96.651 Presence of right artificial knee joint | CPT/HCPCS: 99024 ==

== ENCOUNTER → 2025-07-18 14:56 | Outpatient (BNVA) | payer MEDICARE, SELFPAY | PROVIDERS: PCP Family Medicine; Visit Provider Internal Medicine | DX: I10 Essential (primary) hypertension (principal); I25.10 Atherosclerotic heart disease of native coronary artery without angina pectoris | CPT/HCPCS: 99213 ==

== ENCOUNTER 2025-09-05 09:31 | Outpatient (CLI) | payer MEDICARE, SELFPAY ==
--- NOTE | 2025-09-05 09:45 | MR_ITS ---
WS: [id number] MRA ANGIOGRAPHY [place] OF [place] HISTORY: Schwannoma f/u COMPARISON: CT 02/24/2025 TECHNIQUE: 3-D MR angiography is performed of the [place]. All images are reviewed including source images. Small caliber distal LEFT vertebral artery. RIGHT vertebral artery is not identified. Normal basilar artery. Intracranial internal carotid arteries are patent. No stenosis or high-grade occlusion. Middle cerebral arteries are both patent. Severely atrophic or occluded RIGHT A1 segment. Normal sized LEFT A1 segment. A2 segments are patent as is the anterior communicating artery. Subtle increased signal at the RIGHT cerebellopontine angle corresponds to the mass seen on recent CT of 02/24/2025. This area is not completely included by MR angiogram. This study is not an adequate evaluation of the possible neuroma. MR/MR angio head wo con [id number] IMPRESSION: 1. Nonvisualization of the distal RIGHT vertebral artery. May be congenitally small or occluded. 2. Marked atrophy or occluded RIGHT A1 segment. 3. Normal caliber LEFT A1 segment. 4. No aneurysms. 5. For evaluation of a possible RIGHT cerebellopontine angle mass consider MRI brain evaluation with and without contrast.
== END 2025-09-05 09:32 | disposition home or self-care (01) ==
LOC: RAD 09:32
PROVIDERS: PCP Family Medicine; Visit Provider Family Medicine
DX: D36.10 Benign neoplasm of peripheral nerves and autonomic nervous system, unspecified (principal)
CPT/HCPCS: 70544

== ENCOUNTER 2025-09-17 09:10 | Outpatient (CLI) | payer MEDICARE, SELFPAY ==
--- NOTE | 2025-09-17 09:30 | MR_ITS ---
WS: [id number] MRI BRAIN WITH AND WITHOUT CONTRAST HISTORY: brain mass COMPARISON: CT head noncontrast 02/24/2025 TECHNIQUE: Multiplanar imaging performed through the brain with MultiHance 18 ml's IV. There is a large mass with mass effect centered at the RIGHT cerebellopontine angle. Mixed signal on both the T1 and T2 sequences. Multi foci of hemosiderin within the mass. No obvious extension along the 7th or 8th cranial nerve complex. Mass is centered at the cerebellopontine angle. There is significant mass effect upon the medulla and contact on the inferior tyron. There is some mass effect upon the foramen of [place] and the prepontine cistern. Moderately enhancing mass measures 3.7 x 2.9 x 2.4 cm. There is extension across the midline with mass effect upon the midline structures. There is also mild contact on the RIGHT jugular vein. Mass is encasing and occluding the RIGHT vertebral artery. No additional masses are identified. No hydrocephalus at this time. Mild small vessel ischemic type changes and small vessel disease in the supratentorial white matter. No prior infarcts. Normal diffusion imaging. Paranasal sinuses: Small mucous retention cyst in the LEFT maxillary sinus. Mastoid air cells: Normal. Calvarium and scalp: Normal. MR/MR head wo/w con [id number] IMPRESSION: 1. 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 Mass measures 3.7 x 2.9 x 2.4 cm. Mass extends across the midlin e with narrowing of the foramen of [place] and the prepontine cistern. Patient is at risk for obstructive hydrocephalus. 2. Mass contains punctate foci of calcification or hemosiderin and does contac t the RIGHT jugular vein. No obvious extension along the internal auditory luigi l. Differential includes schwannoma, paraganglioma, metastasis and meningioma. Recommend neurosurgical evaluation at this time due to the significant mass eff ect. 3. Mild small vessel disease. 4. Occluded RIGHT vertebral artery. Notified Chris Amin MD at 09/17/2025 11:11 AM.
[2025-09-17] MEDS: gadobenate dimeglumine 20 mL vial 18 ML IV (10:30)
== END 2025-09-17 09:11 | disposition home or self-care (01) ==
PROVIDERS: PCP Family Medicine; Visit Provider Family Medicine
DX: G93.89 Other specified disorders of brain (principal); D49.6 Neoplasm of unspecified behavior of brain; R22.1 Localized swelling, mass and lump, neck; I67.89 Other cerebrovascular disease; I65.1 Occlusion and stenosis of basilar artery
CPT/HCPCS: 70553; A9577

== ENCOUNTER → 2025-09-19 11:10 | Outpatient (BNVA) | payer MEDICARE, SELFPAY | PROVIDERS: PCP Family Medicine; Visit Provider Orthopaedic Surgery | DX: Z96.651 Presence of right artificial knee joint (principal) | CPT/HCPCS: 73560; 73565; 99213 ==